=== PATIENT | male | born 1955 | race African-American/Black ===

== ENCOUNTER 2017-08-15 13:05 | Emergency (ER) | payer MEDICARE, OTHER ==
[2017-08-15 13:53] LABS: #Eosinphils 0.2 thou/uL (0.0-0.7); #Lymphocytes 1.9 thou/uL (1.20-3.40); #Monocytes 0.6 thou/uL (0.11-0.59); #Neutrophils 3.6 thou/uL (1.40-6.50); %Basophils 0.6 % (0.0-1.0); %Eosinophils 3.9 % (0.0-10.0); %Lymphocytes 30.1 % (21.0-51.0); %Monocytes 9.5 % (0.0-10.0); Hemoglobin 13.5 g/dL (14.0-18.0); Mean Corpuscular HGB CONC 31.5 g/dL (32.0-36.0); Mean Corpuscular Hemoglobin 29.3 pg (27.0-31.0); Mean Platelet Volume 8.1 fL (7.4-10.4); Platelet Count 174 thou/uL (130-400); Red Blood Cell (RBC) Count 4.61 mill/uL (4.70-6.10); White Blood Cell (WBC) Count 6.4 thou/uL (4.8-10.8)
--- NOTE | 2017-08-15 13:59 | RAD ---
SINGLE VIEW CHEST: Date: 08/15/17 COMPARISON: None. HISTORY: Left-sided chest pain. FINDINGS: Single view of the chest shows a normal sized cardiomediastinal silhouette. There is no evidence of c onsolidation, mass, or pleural effusion. Degenerative changes are seen in the spine and shoulders. IMPRESSION: No evidence of acute cardiopulmonary disease. POS: [facility]
[2017-08-15 14:19] LABS: ALT (SGPT) 26 U/L (8-55); AST (SGOT) 37 U/L (5-34); Albumin 3.9 g/dL (3.4-4.8); Alkaline Phosphatase 91 U/L (40-150); Anion Gap 12 mmol/L (10-20); BUN (Urea Nitrogen) 13 mg/dL (8.4-25.7); Bilirubin, Total 0.6 mg/dL (0.2-1.2); CK (CPK) 478 U/L (30-200); Calc. Creatinine Clearance 0 mL/min (70-130); Calcium 9.1 mg/dL (7.8-10.44); Carbon Dioxide 23 mmol/L (23-31); Chloride 103 mmol/L (98-107); Estimated GFR-MDRD 84; Glucose 73 mg/dL (80-115); Protein, Total 7.9 g/dL (5.8-8.1); Sodium 134 mmol/L (136-145)
[2017-08-15 14:20] LABS: CKMB 5.3 ng/mL (0-6.6); Troponin I 0.011 ng/mL (< 0.028)
[2017-08-15] MEDS ORDERED: Midazolam HCl 2 mg/2 ml Vial ONE (14:37)
[2017-08-15] MEDS ORDERED: Ketorolac Tromethamine 30 MG/ML VIAL ONE (14:37)
--- NOTE | 2017-08-15 15:01 | CT ---
CT OF THE CERVICAL SPINE WITHOUT CONTRAST: Date: 08/15/17 HISTORY: Left-sided neck pain that started today. TECHNIQUE: Multiple contiguous axial images were obtained in a CT of the cervical spine without contrast. Sagitt al and coronal reformats were performed. FINDINGS: There are moderate degenerative changes throughout the cervical spine. The intervertebral discs are n arrowed and there are posterior disc osteophyte complexes throughout the cervical spine. These disc o steophyte complexes cause narrowing of the central canal and bilateral neural foramina. Evaluation is less definitive than MRI. There is no evidence of acute fracture or subluxation. No prevertebral sof t tissue swelling is seen. The posterior facets are well aligned. Normal alignment of the skull base with the cervical spine is seen. IMPRESSION: Degenerative changes of the cervical spine without acute osseous abnormality. POS: [facility]
[2017-08-15] MEDS ORDERED: Labetalol HCl 100 MG/20 ML VIAL ONE (16:13)
== END 2017-08-15 16:55 | disposition home or self-care (01) ==
LOC: ERS 13:05
DX: M43.6 Torticollis (principal); I10 Essential (primary) hypertension; I25.2 Old myocardial infarction; F17.290 Nicotine dependence, other tobacco product, uncomplicated; F17.210 Nicotine dependence, cigarettes, uncomplicated; Z79.82 Long term (current) use of aspirin
CPT/HCPCS: 36415; 71045; 72125; 80053; 82553; 84484; 85025; 93005; 96374; 96375; J1885; J2250

== ENCOUNTER 2017-10-18 08:43 | Inpatient (IN) | payer MEDICARE, OTHER ==
[2017-10-18 09:30] LABS: Hemoglobin 13.8 g/dL (14.0-18.0); Mean Corpuscular HGB CONC 32.9 g/dL (32.0-36.0); Mean Corpuscular Hemoglobin 29.8 pg (27.0-31.0); Mean Corpuscular Volume 90.7 fl (80.0-94.0); Mean Platelet Volume 8.2 fL (7.4-10.4); Platelet Count 120 thou/uL (130-400); RBC Distribution Width 12.8 % (11.5-14.5); Red Blood Cell (RBC) Count 4.61 mill/uL (4.70-6.10)
[2017-10-18 09:50] LABS: ALT (SGPT) 25 U/L (8-55); AST (SGOT) 41 U/L (5-34); Albumin 3.8 g/dL (3.4-4.8); Alkaline Phosphatase 89 U/L (40-150); Anion Gap 10 mmol/L (10-20); BUN (Urea Nitrogen) 11 mg/dL (8.4-25.7); Bilirubin, Total 0.3 mg/dL (0.2-1.2); CK (CPK) 461 U/L (30-200); Calc. Creatinine Clearance 0 mL/min (70-130); Calcium 8.3 mg/dL (7.8-10.44); Carbon Dioxide 27 mmol/L (23-31); Chloride 102 mmol/L (98-107); Estimated GFR-MDRD 89; Globulin 3.8 g/dL (2.4-3.5); Glucose 111 mg/dL (80-115); Lipase 15 U/L (8-78); Protein, Total 7.6 g/dL (5.8-8.1); Sodium 135 mmol/L (136-145)
[2017-10-18 09:54] LABS: CKMB 2.9 ng/mL (0-6.6); Troponin I 0.014 ng/mL (< 0.028)
[2017-10-18] MEDS ORDERED: hydrALAZINE 20 MG/ML VIAL ONE (09:54)
[2017-10-18 10:04] LABS: Band 14 % (5-11); Eosinophils 2 % (0-10); Lymphocytes 30 % (21-51); MDiff Complete? YES; Monocytes 8 % (0-10); Neutrophil 37 % (42-75); PLT Morphology Comment Appears Decreased; RBC Morphology Normal; Reactive Lymphocytes 8 % (0-10)
--- NOTE | 2017-10-18 10:20 | CT ---
NONCONTRAST HEAD CT: HISTORY: Dizziness. COMPARISON: 11/21/13. TECHNIQUE: A noncontrast head CT is performed from the skull base to the skull vertex. FINDINGS: No parenchymal hemorrhage. No extraaxial hematoma. No midline shift. Basilar cisterns are patent. Age-appropriate brain volume. Cortical polk-white matter differentiation is preserved. The ventricles and sulci are patent and symmetric. Chronic small-vessel ischemic changes of the white matter are identified. Calvarium is intact. Adequate aeration of the mastoid air cells. Partial opacification of the visua lized ethmoid air cells. IMPRESSION: 1. No acute intracranial process. 2. Chronic small-vessel ischemic changes of the white matter are present. POS: [facility]
[2017-10-18] MEDS ORDERED: niCARdipine 20MG In NaCl 20 MG/200 ML BAG ONE (10:30)
--- NOTE | 2017-10-18 10:49 | CT ---
CTA CHEST WITH 3D VOLUME RENDERING CTA ABDOMEN AND PELVIS WITH 3D VOLUME RENDERING CTA AORTOGRAM WITH 3D VOLUME RENDERING: CLINICAL HISTORY: New-onset chest pain with abdominal pulsatility and dizziness. FINDINGS: There is no evidence of an acute aortic dissection. No aneurysmal dilatation of the thoracoabdominal aorta. There is multifocal mild atherosclerotic irregularity. No acute abnormality of the pulmonar y parenchyma or solid abdominal organs, although evaluation is not tailored for their evaluation on t he basis on this aortogram. Scattered osseous degenerative change is present. There is a fat-contai rolando hernia of the superior, right aspect of the paraumbilical region. IMPRESSION: No acute aortic dissection or aneurysm. No periaortic hematoma. Diffuse, mild atherosclerotic disea se is present. POS: [facility]
--- NOTE | 2017-10-18 10:58 | RAD ---
FRONTAL VIEW CHEST SERIES; COMPARISON: 08/15/17. INDICATION: Chest pain. FINDINGS: The lungs are hyperinflated. Cardiac silhouette is stable. No new consolidation or effusion. No di screte pneumothorax. IMPRESSION: 1. Hyperinflated lungs indicating chronic obstructive pulmonary disease. 2. No lobar consolidation. POS: [facility]
[2017-10-18] MEDS ORDERED: Morphine 4 MG/ML VIAL ONE (11:25)
[2017-10-18] MEDS ORDERED: Morphine 4 MG/ML VIAL IV PRN (12:13)
[2017-10-18] MEDS ORDERED: Ondansetron HCl/PF 4 MG/2 ML Vial IVP PRN ×2 (12:42→13:02)
[2017-10-18] MEDS ORDERED: Acetaminophen 650 MG Suppository PR PRN (12:42)
[2017-10-18] MEDS ORDERED: Bisacodyl 5 MG TAB PO PRN (12:42)
[2017-10-18] MEDS ORDERED: Ondansetron ODT 4 MG TAB PO PRN (13:03)
[2017-10-18 13:08] LABS: #Lymphocytes 0.5 thou/uL (1.20-3.40); #Monocytes 0.3 thou/uL (0.11-0.59); #Neutrophils 1.3 thou/uL (1.40-6.50); %Basophils 1.2 % (0.0-1.0); %Eosinophils 0.2 % (0.0-10.0); %Lymphocytes 24.7 % (21.0-51.0); %Monocytes 14.7 % (0.0-10.0); %Neutrophils 59.1 % (42.0-75.0); Hemoglobin 13.3 g/dL (14.0-18.0); Mean Corpuscular HGB CONC 33.4 g/dL (32.0-36.0); Mean Corpuscular Volume 89.8 fl (80.0-94.0); Mean Platelet Volume 8.6 fL (7.4-10.4); Platelet Count 106 thou/uL (130-400); RBC Distribution Width 12.7 % (11.5-14.5); Red Blood Cell (RBC) Count 4.44 mill/uL (4.70-6.10); White Blood Cell (WBC) Count 2.1 thou/uL (4.8-10.8)
[2017-10-18] MEDS ORDERED: Aspirin 325 MG TAB PO SCH (13:15)
[2017-10-18 13:21] VITALS: BMI 20.9
[2017-10-18 13:23] LABS: Troponin I Less than 0.010 ng/mL (< 0.028)
[2017-10-18] MEDS ORDERED: Lidocaine 2% Viscous Solution 10 ML, Aluminum & Magnesium Hydroxide 30 ML SSW SCH (13:30)
[2017-10-18] MEDS ORDERED: ISOVUE-370 76%-LOCM 1 ML ONE (13:56)
--- NOTE | 2017-10-18 13:57 | HP ---
PRIMARY CARE PROVIDER: None. CHIEF COMPLAINT: Abdominal pain. HISTORY OF PRESENT ILLNESS: Mr. Meléndez is a pleasant 62-year-old gentleman who was seen at [facility] on 10/18/2017. He was hospitalized at this facility in 02/2016 for chest pain. He reports that he does not follow up with primary care provider. He was reportedly doing well until 2 days ago. At that time, he started having cough. Last night, he developed pain over his upper abdomen. He describes it as sharp, across his upper abdomen, 10/10 at its worst, radiating to the left side of his chest as well as to the back. No known aggravating or relieving factors , accompanied by nausea and vomiting, not accompanied by diarrhea. He reports that he felt warm, but he did not check his temperature. He came to the emergency room because of ongoing abdominal pain. REVIEW OF SYSTEMS: All other systems reviewed and found to be negative. PAST MEDICAL HISTORY: Hypertension and myocardial infarction x2. PAST SURGICAL HISTORY: Back surgery and right knee surgery. SOCIAL HISTORY: Smokes 2-3 cigars a day. He denies alcohol use or recreational drug use. ALLERGIES: No known drug allergies. CURRENT MEDICATION: Aspirin 81 mg daily. FAMILY HISTORY: No family history of premature coronary artery disease. PHYSICAL EXAMINATION: GENERAL: On examination, Mr. Meléndez is awake and alert, in mild distress. VITAL SIGNS: Blood pressure is 223/128, pulse is 67, his breathing at rate of 20 and saturating 97% on room air. He is afebrile. EYES: No scleral icterus. No conjunctival pallor. ENT: Dry mucosal membranes, no oropharyngeal erythema or exudates. NECK: Supple, nontender, normal range of movement. Trachea is midline. RESPIRATORY: Accessory muscles of breathing are not active. Chest wall movements are symmetric bilaterally. LUNGS: Clear to auscultation without wheeze, rhonchi or crepitations. CARDIOVASCULAR: S1 and S2 are heard, regular. Peripheral pulses palpable. No carotid bruit, no pericardial rub. ABDOMEN: Scaphoid, mild epigastric tenderness, no guarding or rigidity, bowel sounds heard, no hepatomegaly, no splenomegaly. NEUROLOGIC: Cranial nerves II-XII intact. Deep tendon reflexes are 2+. MUSCULOSKELETAL: Power is 5/5 in all 4 extremities. SKIN: No rashes or subcutaneous nodules. LYMPHATIC: No cervical lymphadenopathy. PSYCHIATRIC: Appears anxious, oriented to person and place, not to time. IMAGING DATA AND LABORATORY DATA: Mr. Meléndez's labs and investigations were reviewed. I reviewed his electrocardiogram, which shows normal sinus rhythm, no ST changes to suggest an acute coronary syndrome. I also reviewed his chest x-ray, which does not show any pulmonary infiltrates. He does have hyperinflated lungs. He also had CT dissection protocol, which did not reveal any acute aortic dissection or aneurysm. That is no periaortic hematoma. He has diffuse mild atherosclerotic disease. Laboratory investigation show leukopenia with 3,000 white cells, of which 37% are neutrophils. He also has bandemia, with 14% bands. He has normocytic anemia with hemoglobin 13.8 and thrombocytopenia with platelet count 120,000. Sodium is decreased at 135. The rest of the electrolytes are normal. Creatinine is normal. AST is elevated at 41, but the remainder of liver profile is unremarkable. Lipase is normal. Troponin I is normal. BNP is normal. CK is elevated at 461. ASSESSMENT AND PLAN: Mr. Meléndez is a pleasant 62-year-old gentleman who was seen at [facility] on 10/18/2017. His problem list includes: 1. Abdominal pain: Etiology is unclear. 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 For now, we will treat the patient with analgesics as well as GI cocktail and observe. 2. Hypertensive urgency: Patient's blood pressure was consistently elevated in the emergency room. He is now on nicardipine drip. He will be admitted to the CCU for further management. 3. Leukopenia: Patient's presentation actually meets the criteria for sepsis. I will request blood cultures as well as urine studies. If there is any evidence of infection, we will start the patient on antibiotics. We will recheck his CBC to ensure bandemia and leukopenia earlier. 4. Tobacco abuse: Patient has been counseled regarding tobacco cessation. Start patient on nicotine replacement therapy. 5. Medication noncompliance: Patient has been counseled regarding medication compliance. 6. Abnormal liver function tests: Mildly elevated AST could be secondary to rhabdomyolysis. 7. Rhabdomyolysis: Mild. Provide intravenous hydration. 8. Hyponatremia: Mild, rechecked. 9. Thrombocytopenia: I note that patient had a normal platelet count in 2017. We will recheck platelet count. We will not start patient on heparin for deep venous thrombosis prophylaxis, we will use SCDs. Many thanks for allowing me to participate in Mr. Meléndez's care. Please feel free to contact me with any questions or concerns. LEVEL OF RISK: High. LEVEL OF COMPLEXITY: High. MTDD
[2017-10-18] MEDS: niCARdipine HCl 25 MG in Sodium Chloride 0.9% 250 ML 240 ML IVPB SCH ×3 (15:00→23:09)
[2017-10-18] MEDS: Sodium Chloride 0.9% 1,000 ML IV SCH (15:03)
[2017-10-18 15:43] LABS: Amphetamine Not Detected (NotDetected); Barbiturates Screen Not Detected (NotDetected); Benzodiazepine Screen Detected (NotDetected); Cocaine Metabolite Screen Not Detected (NotDetected); Medtox Control Line Valid? VALID (VALID); Medtox Reader # READER 1; Methadone Not Detected (NotDetected); Methamphetamine Not Detected (NotDetected); Opiate Screen Detected (NotDetected); Oxycodone Screen Not Detected (NotDetected); Phencyclidine (PCP) Not Detected (NotDetected); THC/Cannabinoid Screen Detected (NotDetected); Tricyclic Screen Not Detected (NotDetected)
[2017-10-18] MEDS: Nicotine 14 MG PATCH TD SCH (15:52)
[2017-10-18] MEDS ORDERED: Lidocaine 2% Viscous Solution 10 ML, Aluminum & Magnesium Hydroxide 30 ML SSW PRN (23:00)
--- NOTE | 2017-10-19 01:30 | CON ---
DATE OF CONSULTATION: 10/18/2017 HISTORY OF PRESENT ILLNESS: Stuart Meléndez is a 62-year-old gentleman, noncompliant with his blood pr essure medication, presented with chest pain, shortness of breath, epigastric pain. Apparently, he r an out of his medication. Moved from [place] near [place] to [facility], does not have a pr [facility] care physician, but apparently had some kind of blood pressure medicine that he had a reaction to. In the ER, he was found to have nonspecific EKG changes, markedly elevated blood pressure. ER note s [place] his blood pressure on arrival was 198/136, temperature 98, respiration 21, saturation 97% on ro om air. He is started on a Cardene drip. Denies any headache, nausea or vomiting. PAST MEDICAL HISTORY: Hypertension and arthritis. PAST SURGICAL HISTORY: Otherwise included a knee operation, back surgeries many years ago. SOCIAL HISTORY: Alcohol, none. Tobacco, two cigars a day. He is unemployed, disabled. ALLERGIES: None. Only medicine he is taking is aspirin. REVIEW OF SYSTEMS: Otherwise, 10-point negative. PHYSICAL EXAMINATION: GENERAL: Appears to be in no acute distress, on Cardene drip. VITAL SIGNS: His blood pressure is 160/80, sats are 97 on room air, respiration rate 18, pulse 80. CHEST: With no wheezing or crackles. CARDIAC: Normal S1, S2, no gallops. ABDOMEN: Soft. EXTREMITIES: No edema. NEUROLOGIC: Awake, alert, responsive. Moves all of his extremities. LABORATORY AND X-RAY FINDINGS: White count 2000, H and H 13 and 39, platelet count is low 106. Appe ars to be something new. His electrolytes are normal. Renal function is normal. AST slightly eleva pippa at 41. He has benzos and opiates in his toxicology screen. CT brain, CT chest, chest x-rays were all unremarkable. IMPRESSION: 1. Hypertensive urgency, well controlled with Cardene. 2. Noncompliance with medication. 3. Arthritis. 4. Tobacco abuse. 5. Thrombocytopenia, new, unknown etiology. 6. Leukopenia. Consider ordering a HIV and a hepatitis profile for his thrombocytopenia. I agree with present blood pressure medication control. I will start him on p.o. medication at this time. We will follow while in the ICU.
[2017-10-19] MEDS: niCARdipine HCl 50 MG in Sodium Chloride 0.9% 250 ML 240 ML IVPB SCH ×2 (01:51→08:14)
[2017-10-19] MEDS: Sodium Chloride 0.9% 1,000 ML IV SCH ×2 (02:50→20:14)
[2017-10-19 05:45] LABS: Band 2 % (5-11); Hemoglobin 13.3 g/dL (14.0-18.0); Lymphocytes 35 % (21-51); MDiff Complete? YES; Mean Corpuscular Hemoglobin 29.7 pg (27.0-31.0); Mean Corpuscular Volume 87.5 fl (80.0-94.0); Mean Platelet Volume 8.3 fL (7.4-10.4); Monocytes 11 % (0-10); Neutrophil 52 % (42-75); PLT Morphology Comment Appears Decreased; Platelet Count 99 thou/uL (130-400); RBC Distribution Width 12.6 % (11.5-14.5); Red Blood Cell (RBC) Count 4.49 mill/uL (4.70-6.10); White Blood Cell (WBC) Count 2.9 thou/uL (4.8-10.8)
[2017-10-19 06:02] LABS: Anion Gap 8 mmol/L (10-20); BUN (Urea Nitrogen) 9 mg/dL (8.4-25.7); Calc. Creatinine Clearance 99 mL/min (70-130); Calcium 8.2 mg/dL (7.8-10.44); Carbon Dioxide 25 mmol/L (23-31); Chloride 101 mmol/L (98-107); Estimated GFR-MDRD Greater than 90; Glucose 107 mg/dL (80-115); Potassium 3.2 mmol/L (3.5-5.1); Sodium 131 mmol/L (136-145)
[2017-10-19] MEDS: Acetaminophen 325 MG TAB PO PRN (08:23)
[2017-10-19] MEDS ORDERED: Losartan 25 MG TAB PO SCH (09:00)
--- NOTE | 2017-10-19 12:03 | PRG ---
DATE OF SERVICE: 10/19/2017 SUBJECTIVE: Stuart Meléndez this morning is awake, alert, and responsive. No headache. No shortness of breath. PHYSICAL EXAMINATION: VITAL SIGNS: Blood pressure 155/89, pulse 109, respiration rate 18. CHEST: Decreased breath sounds, no wheezing. CARDIAC: Normal S1, S2. No gallops. ABDOMEN: Soft, no masses. LABORATORY DATA: White count 2.9, hemoglobin and hematocrit 13 and 39, platelet count is low. Sodium 132, creatinine 3.2. IMPRESSION: 1. Uncontrolled hypertension. 2. Thrombocytopenia. PLAN: Increase Cozaar. Apparently, his first dose of Cozaar was not given until this morning. Hopefully, once his blood pressure is controlled of the Cardene, he can be transferred out of the ICU .
[2017-10-19] MEDS: Nicotine 14 MG PATCH TD SCH (13:15)
--- NOTE | 2017-10-19 15:12 | PDOC.PN ---
- Subjective Encounter Start Date: 10/19/17 Encounter Start Time: 10:20 Pt seen for followup re: hypertensive urgency. Denies chest pain, denies abdominal pain. No nausea or vomiting. - Objective MAR Reviewed: Yes Vital Signs & Weight: Vital Signs (12 hours) Temp Pulse Resp Pulse Ox 10/19/17 12:00 98.1 F 10/19/17 08:00 98 F 85 18 96 Weight Admit Weight 171 lb 15.369 oz Weight 171 lb 15.369 oz Most Recent Monitor Data Heart Rate from ECG 79 NIBP 153/97 NIBP BP-Mean 109 Respiration from ECG 15 SpO2 94 I&O: 10/18/17 10/19/17 10/20/17 06:59 06:59 06:59 Intake Total 2130 586 Output Total 2170 1010 Balance -40 -424 Result Diagrams: 10/19/17 04:40 10/19/17 04:40 EKG Reviewed by me: Yes (Tele: NSR) Phys Exam - Physical Examination Constitutional: NAD HEENT: moist MMs, sclera anicteric, oral pharynx no lesions, 2+ tonsils Neck: no nodes, no JVD, supple, full ROM Respiratory: no wheezing, no rales, no rhonchi, clear to auscultation bilateral Cardiovascular: RRR, no rub S1, S2 Gastrointestinal: soft, non-tender, no distention, positive bowel sounds Neurological: moves all 4 limbs Psychiatric: normal affect Deviation from normal: Oriented to person and place, not to time Dx/Plan (1) Hypertensive urgency Code(s): I16.0 - HYPERTENSIVE URGENCY Status: Acute Comment: Pt started on losartan, will try to weasn pt off nicardipene drip. Monitor vital signs and titrate antihypertensives as needed. (2) Hypokalemia Code(s): E87.6 - HYPOKALEMIA Status: Acute Comment: replace and check potassium level (3) Hyponatremia Code(s): E87.1 - HYPO-OSMOLALITY AND HYPONATREMIA Status: Acute Comment: Likely asymptomatic (4) Polysubstance abuse Code(s): F19.10 - OTHER PSYCHOACTIVE SUBSTANCE ABUSE, UNCOMPLICATED Status: Chronic Comment: counseled re: cessation. (5) Thrombocytopenia Code(s): D69.6 - THROMBOCYTOPENIA, UNSPECIFIED Status: Chronic Comment: Will check HIV and hepatitis panel (6) Abdominal pain Code(s): R10.9 - UNSPECIFIED ABDOMINAL PAIN Status: Resolved - Plan * . Review of Systems - Review of Systems Constitutional: negative: fever, chills, sweats, weakness, malaise Respiratory: negative: Cough, Shortness of Breath, SOB with Excertion, Pleuritic Pain, Wheezing Cardiovascular: negative: chest pain, palpitations, orthopnea, paroxysmal nocturnal dyspnea, edema, light headedness Gastrointestinal: negative: Nausea, Vomiting, Abdominal Pain, Diarrhea, Constipation, Melena, Hematochezia Genitourinary: negative: Dysuria, Frequency, Incontinence, Hematuria, Retention - Medications/Allergies Allergies/Adverse Reactions: Allergies Allergy/AdvReac Type Severity Reaction Status Date / Time No Known Drug Allergies Allergy Verified 11/20/13 10:15 Medications: Current Medications Acetaminophen (Tylenol) 650 mg PO Q4H PRN PRN Reason: Headache/Fever or Pain Last Admin: 10/19/17 08:23 Dose: 650 mg Acetaminophen (Tylenol) 650 mg ME Q4H PRN PRN Reason: Headache/Fever or Pain Bisacodyl (Dulcolax) 10 mg PO DAILYPRN PRN PRN Reason: Constipation Lidocaine HCl 10 ml/ Al (Hydroxide/Mg Hydroxide 30 ml) 0 ml SSW Q8H PRN PRN Reason: heartburn Sodium Chloride (Normal Saline 0.9%) 1,000 mls @ 70 mls/hr IV .[id number] [facility]DRO Last Admin: 10/19/17 02:50 Dose: 1,000 mls Nicardipine HCl 50 mg/ Sodium (Chloride) 260 mls @ 0 mls/hr IVPB INF [facility]O; Titrate PRN Reason: Protocol Last Admin: 10/19/17 08:14 Dose: 260 mls Losartan Potassium (Cozaar) 50 mg PO BID [facility] Nicotine (Nicoderm Patch) 14 mg TD Q24HR [facility] Last Admin: 10/19/17 13:15 Dose: 14 mg Ondansetron HCl (Zofran) 4 mg IVP Q6H PRN PRN Reason: Nausea/Vomiting Last Admin: 10/18/17 18:54 Dose: 4 mg Sodium Chloride (Flush - Normal Saline) 10 ml IVF Q12HR [facility] Last Admin: 10/19/17 08:22 Dose: 10 ml Sodium Chloride (Flush - Normal Saline) 10 ml IVF PRN PRN PRN Reason: Saline Flush
[2017-10-19] MEDS ORDERED: Potassium Chloride 20 MEQ TAB PO SCH (15:15)
[2017-10-19] MEDS ORDERED: Amlodipine 5 MG TAB PO SCH (17:00)
[2017-10-19 17:39] LABS: HBSAg Index 0.21 S/CO (0-0.99); Hep B Surf Ag Non-Reactive S/CO (NonReactive)
[2017-10-19 17:41] LABS: Hep A IgM AB Non-Reactive (NonReactive)
[2017-10-19 17:42] LABS: HBCM Index 0.08 S/CO (0-0.79); Hep A IgM S/CO 0.23 S/CO (0-0.79); Hepatitis B Core IGM Abs Non-Reactive (NonReactive)
[2017-10-19 17:44] LABS: HIV (1/2) Antibody/Antigen Non-Reactive (NonReactive); HIV 1/2 INDEX 0.07 S/CO (<1.00)
[2017-10-19 18:44] LABS: Hep C IgG Ab REACTIVE (NonReactive); Hep C Index 12.11 S/CO (0-0.79)
[2017-10-19] MEDS: Losartan 25 MG TAB PO SCH (20:13)
[2017-10-19] MEDS: cloNIDine 0.1 MG TAB PO PRN (20:14)
[2017-10-19] MEDS: hydrALAZINE 20 MG/ML VIAL SLOW IVP PRN (23:04)
[2017-10-20] MEDS: Acetaminophen 325 MG TAB PO PRN (01:05)
[2017-10-20] MEDS ORDERED: niCARdipine HCl 50 MG in Sodium Chloride 0.9% 250 ML 230 ML IVPB SCH (04:00)
[2017-10-20 05:24] LABS: Anion Gap 10 mmol/L (10-20); BUN (Urea Nitrogen) 9 mg/dL (8.4-25.7); Calc. Creatinine Clearance 104 mL/min (70-130); Calcium 8.3 mg/dL (7.8-10.44); Carbon Dioxide 23 mmol/L (23-31); Chloride 102 mmol/L (98-107); Estimated GFR-MDRD Greater than 90; Glucose 107 mg/dL (80-115); Potassium 3.4 mmol/L (3.5-5.1); Sodium 132 mmol/L (136-145)
[2017-10-20 05:52] LABS: Band 6 % (5-11); Hemoglobin 13.5 g/dL (14.0-18.0); Lymphocytes 48 % (21-51); MDiff Complete? YES; Mean Corpuscular HGB CONC 34.1 g/dL (32.0-36.0); Mean Corpuscular Hemoglobin 29.8 pg (27.0-31.0); Mean Corpuscular Volume 87.3 fl (80.0-94.0); Mean Platelet Volume 8.3 fL (7.4-10.4); Monocytes 14 % (0-10); Neutrophil 29 % (42-75); PLT Morphology Comment Appears Decreased; Platelet Count 94 thou/uL (130-400); RBC Distribution Width 12.5 % (11.5-14.5); Reactive Lymphocytes 3 % (0-10); Red Blood Cell (RBC) Count 4.55 mill/uL (4.70-6.10); White Blood Cell (WBC) Count 3.1 thou/uL (4.8-10.8)
--- NOTE | 2017-10-20 08:52 | PRG ---
DATE OF SERVICE: 10/20/2017 This morning he is awake, alert, responsive. He is still thrombocytopenic. His hepatitis C antibody was reactive. PHYSICAL EXAMINATION: VITAL SIGNS: Blood pressure 139/98, sats 98, respiration rate 18. He is on Cardene CR 5 mg an hour. CHEST: Chest revealed decreased breath sounds, no wheezing. CARDIAC: Normal S1, S2. ABDOMEN: Soft, no masses. His blood pressure medicine has been adjusted. I put him on hydralazine 25 three times a day, Coreg home medicine 6.25 twice a day. IMPRESSION: 1. Hypertensive. 2. Thrombocytopenia, probably secondary to hepatitis C. PLAN: Once the Cardene is off, he can be transferred out of the ICU.
[2017-10-20] MEDS ORDERED: Amlodipine 5 MG TAB PO SCH (09:00)
[2017-10-20] MEDS ORDERED: hydrALAZINE 25 MG TAB PO SCH ×2 (09:00→15:00)
[2017-10-20] MEDS: Losartan 25 MG TAB PO SCH ×2 (09:50→22:45)
[2017-10-20] MEDS ORDERED: Carvedilol 6.25 MG TAB PO SCH ×2 (09:50→21:00)
[2017-10-20] MEDS: hydrALAZINE 25 MG TAB PO SCH ×3 (09:51→22:46)
[2017-10-20] MEDS: Carvedilol 6.25 MG TAB PO SCH ×3 (09:57→17:34)
[2017-10-20] MEDS: Sodium Chloride 0.9% 1,000 ML IV SCH (09:59)
[2017-10-20] MEDS ORDERED: Potassium Chloride 20 MEQ TAB PO SCH (12:15)
--- NOTE | 2017-10-20 15:59 | PDOC.PN ---
- Subjective Encounter Start Date: 10/20/17 Encounter Start Time: 09:00 Pt seen for followup re: hypertensive urgency. Denies chest pain, shortness of breath, fevers or chills. - Objective MAR Reviewed: Yes Vital Signs & Weight: Vital Signs (12 hours) Temp Pulse Resp BP Pulse Ox 10/20/17 15:06 137/64 10/20/17 12:00 98.2 F 10/20/17 10:01 137/64 10/20/17 10:00 137/64 10/20/17 09:51 80 171/88 H 10/20/17 08:00 97.8 F 80 16 97 Weight Admit Weight 171 lb 15.369 oz Weight 171 lb 15.369 oz Most Recent Monitor Data Heart Rate from ECG 73 NIBP 179/108 NIBP BP-Mean 142 Respiration from ECG 18 SpO2 96 I&O: 10/19/17 10/20/17 10/21/17 06:59 06:59 06:59 Intake Total 2130 3468 924 Output Total 2170 3650 880 Balance -40 -182 44 Result Diagrams: 10/20/17 04:21 10/20/17 04:20 EKG Reviewed by me: Yes (Tele: NSR) Phys Exam - Physical Examination Constitutional: NAD HEENT: moist MMs, sclera anicteric, oral pharynx no lesions, 2+ tonsils Neck: no nodes, no JVD, supple, full ROM Respiratory: no wheezing, no rales, no rhonchi, clear to auscultation bilateral Cardiovascular: RRR, no rub S1, S2 Gastrointestinal: soft, non-tender, no distention, positive bowel sounds Neurological: moves all 4 limbs Psychiatric: normal affect Dx/Plan (1) Hypertensive urgency Code(s): I16.0 - HYPERTENSIVE URGENCY Status: Acute Comment: Unable to wean off of Cardene drip last night. Started on Coreg and lisinopril. (2) Hypokalemia Code(s): E87.6 - HYPOKALEMIA Status: Acute Comment: replace potassium, check potassium level (3) Hyponatremia Code(s): E87.1 - HYPO-OSMOLALITY AND HYPONATREMIA Status: Acute Comment: asymptomatic (4) Polysubstance abuse Code(s): F19.10 - OTHER PSYCHOACTIVE SUBSTANCE ABUSE, UNCOMPLICATED Status: Chronic Comment: counseled re: cessation. (5) Thrombocytopenia Code(s): D69.6 - THROMBOCYTOPENIA, UNSPECIFIED Status: Chronic Comment: HIV and hepatitis panel non-reactive (6) Abdominal pain Code(s): R10.9 - UNSPECIFIED ABDOMINAL PAIN Status: Resolved - Plan * . Review of Systems - Review of Systems Constitutional: negative: fever, chills, sweats, weakness, malaise Cardiovascular: negative: chest pain, palpitations, orthopnea, paroxysmal nocturnal dyspnea, edema, light headedness Gastrointestinal: negative: Nausea, Vomiting, Abdominal Pain, Diarrhea, Constipation, Melena, Hematochezia Skin: negative: Rash, Lesions, Patrick, Bruising Neurological: negative: Weakness, Numbness, Incoordination, Change in Speech, Confusion, Seizures - Medications/Allergies Allergies/Adverse Reactions: Allergies Allergy/AdvReac Type Severity Reaction Status Date / Time No Known Drug Allergies Allergy Verified 11/20/13 10:15 Medications: Current Medications Acetaminophen (Tylenol) 650 mg PO Q4H PRN PRN Reason: Headache/Fever or Pain Last Admin: 10/20/17 01:05 Dose: 650 mg Acetaminophen (Tylenol) 650 mg ME Q4H PRN PRN Reason: Headache/Fever or Pain Bisacodyl (Dulcolax) 10 mg PO DAILYPRN PRN PRN Reason: Constipation Carvedilol (Coreg) 6.25 mg PO BID-[facility] Last Admin: 10/20/17 10:00 Dose: 6.25 mg Clonidine (Catapres) 0.1 mg PO Q6H PRN PRN Reason: SBP Greater Than 170 Last Admin: 10/19/17 20:14 Dose: 0.1 mg Lidocaine HCl 10 ml/ Al (Hydroxide/Mg Hydroxide 30 ml) 0 ml SSW Q8H PRN PRN Reason: heartburn Hydralazine HCl (Apresoline) 10 mg SLOW IVP Q6H PRN PRN Reason: SBP Greater Than 170 Last Admin: 10/19/17 23:04 Dose: 10 mg Hydralazine HCl (Apresoline) 25 mg PO TID [facility] Last Admin: 10/20/17 15:06 Dose: 25 mg Nicardipine HCl 50 mg/ Sodium (Chloride) 250 mls @ 0 mls/hr IVPB INF [facility]; Titrate PRN Reason: Protocol Last Admin: 10/20/17 03:56 Dose: 250 mls Lisinopril (Zestril) 20 mg PO BID [facility] Losartan Potassium (Cozaar) 50 mg PO BID [facility] Last Admin: 10/20/17 09:50 Dose: 50 mg Ondansetron HCl (Zofran) 4 mg IVP Q6H PRN PRN Reason: Nausea/Vomiting Last Admin: 10/18/17 18:54 Dose: 4 mg Sodium Chloride (Flush - Normal Saline) 10 ml IVF Q12HR [facility] Last Admin: 10/20/17 09:51 Dose: 10 ml Sodium Chloride (Flush - Normal Saline) 10 ml IVF PRN PRN PRN Reason: Saline Flush
[2017-10-20] MEDS: cloNIDine 0.1 MG TAB PO PRN (17:33)
[2017-10-20] MEDS ORDERED: Lisinopril 20 MG TAB PO SCH (21:00)
[2017-10-20] MEDS: Lisinopril 20 MG TAB PO SCH (22:47)
[2017-10-21 05:35] LABS: Anion Gap 9 mmol/L (10-20); BUN (Urea Nitrogen) 10 mg/dL (8.4-25.7); Calc. Creatinine Clearance 99 mL/min (70-130); Calcium 8.5 mg/dL (7.8-10.44); Carbon Dioxide 24 mmol/L (23-31); Chloride 103 mmol/L (98-107); Estimated GFR-MDRD Greater than 90; Glucose 86 mg/dL (80-115); Potassium 3.9 mmol/L (3.5-5.1); Sodium 132 mmol/L (136-145)
[2017-10-21 06:09] LABS: Band 5 % (5-11); Eosinophils 3 % (0-10); Lymphocytes 49 % (21-51); MDiff Complete? YES; Mean Corpuscular HGB CONC 33.7 g/dL (32.0-36.0); Mean Corpuscular Hemoglobin 29.7 pg (27.0-31.0); Mean Corpuscular Volume 87.9 fl (80.0-94.0); Mean Platelet Volume 8.9 fL (7.4-10.4); Monocytes 11 % (0-10); Neutrophil 32 % (42-75); PLT Morphology Comment Appears Decreased; Platelet Count 96 thou/uL (130-400); RBC Distribution Width 12.5 % (11.5-14.5); White Blood Cell (WBC) Count 3.8 thou/uL (4.8-10.8)
--- NOTE | 2017-10-21 08:34 | PRG ---
DATE OF SERVICE: 10/21/2017 He is awake, alert, responsive. No pain, no discomfort. PHYSICAL EXAMINATION: VITAL SIGNS: Blood pressure 177/98, pulse 118, sats 98% on room air, respirations 18. CHEST: Chest revealed decreased breath sounds, no wheezing. CARDIAC: Normal S1-S2. No gallops. ABDOMEN: Soft, no masses. White count 3.8, platelet count 96. Electrolytes are normal. Sodium 132. IMPRESSION: Hypertensive urgency. Been on nicardipine for a period of time, much better. PLAN: He is on Zestril, Cozaar, Coreg and hydralazine for his blood pressure, pretty much what he wa s taking at home. He can be transferred out of the ICU. Continue blood pressure observation. PT and supportive care.
[2017-10-21] MEDS: Losartan 25 MG TAB PO SCH ×2 (08:43→21:37)
[2017-10-21] MEDS: Lisinopril 20 MG TAB PO SCH ×2 (08:43→21:36)
[2017-10-21] MEDS: hydrALAZINE 25 MG TAB PO SCH ×3 (08:44→21:37)
[2017-10-21] MEDS: Carvedilol 6.25 MG TAB PO SCH ×2 (08:58→16:39)
--- NOTE | 2017-10-21 13:15 | PDOC.PN ---
- Subjective Encounter Start Date: 10/21/17 Encounter Start Time: 11:00 Pt seen for followup re: hypertensive urgency. Denies chest pain. - Objective MAR Reviewed: Yes Vital Signs & Weight: Vital Signs (12 hours) Temp Pulse Resp BP Pulse Ox 10/21/17 12:00 98.3 F 10/21/17 08:58 160/102 H 10/21/17 08:44 81 160/102 H 10/21/17 08:43 160/102 H 10/21/17 08:00 98.5 F 80 15 92 L 10/21/17 04:00 98.3 F Weight Admit Weight 171 lb 15.369 oz Weight 171 lb 15.369 oz Most Recent Monitor Data Heart Rate from ECG 80 NIBP 183/107 NIBP BP-Mean 128 Respiration from ECG 15 SpO2 98 I&O: 10/20/17 10/21/17 10/22/17 06:59 06:59 06:59 Intake Total 3468 1754 720 Output Total 3650 2520 200 Balance -182 -766 520 Result Diagrams: 10/21/17 04:13 10/21/17 04:13 EKG Reviewed by me: Yes (Tele: NSR) Phys Exam - Physical Examination Constitutional: NAD HEENT: moist MMs, sclera anicteric, oral pharynx no lesions, 2+ tonsils Neck: no nodes, no JVD, supple, full ROM Respiratory: no wheezing, no rales, no rhonchi, clear to auscultation bilateral Cardiovascular: RRR, no rub Gastrointestinal: soft, non-tender, no distention, positive bowel sounds Musculoskeletal: pulses present Neurological: moves all 4 limbs Psychiatric: normal affect Deviation from normal: Oriented to person and place, but not to time Dx/Plan (1) Hypertensive urgency Code(s): I16.0 - HYPERTENSIVE URGENCY Status: Acute Comment: labile hypertension. Continue on current antihypertensives, monitor vital signs. (2) Hyponatremia Code(s): E87.1 - HYPO-OSMOLALITY AND HYPONATREMIA Status: Acute Comment: stable, asymptomatic (3) Polysubstance abuse Code(s): F19.10 - OTHER PSYCHOACTIVE SUBSTANCE ABUSE, UNCOMPLICATED Status: Chronic Comment: counseled re: cessation. (4) Thrombocytopenia Code(s): D69.6 - THROMBOCYTOPENIA, UNSPECIFIED Status: Chronic Comment: HIV and hepatitis panel non-reactive (5) Abdominal pain Code(s): R10.9 - UNSPECIFIED ABDOMINAL PAIN Status: Resolved (6) Hypokalemia Code(s): E87.6 - HYPOKALEMIA Status: Resolved - Plan * . Review of Systems - Review of Systems Constitutional: negative: fever, chills, sweats, weakness, malaise Respiratory: Cough, Dry, SOB with Excertion. negative: Shortness of Breath, Hemoptysis, Pleuritic Pain, Sputum, Wheezing Cardiovascular: negative: chest pain, palpitations, orthopnea, paroxysmal nocturnal dyspnea, edema, light headedness Gastrointestinal: negative: Nausea, Vomiting, Abdominal Pain, Diarrhea, Constipation, Melena, Hematochezia Genitourinary: negative: Dysuria, Frequency, Incontinence, Hematuria, Retention - Medications/Allergies Allergies/Adverse Reactions: Allergies Allergy/AdvReac Type Severity Reaction Status Date / Time No Known Drug Allergies Allergy Verified 11/20/13 10:15 Medications: Current Medications Acetaminophen (Tylenol) 650 mg PO Q4H PRN PRN Reason: Headache/Fever or Pain Last Admin: 10/20/17 01:05 Dose: 650 mg Acetaminophen (Tylenol) 650 mg VA Q4H PRN PRN Reason: Headache/Fever or Pain Bisacodyl (Dulcolax) 10 mg PO DAILYPRN PRN PRN Reason: Constipation Carvedilol (Coreg) 6.25 mg PO BID-[facility] Last Admin: 10/21/17 08:58 Dose: 6.25 mg Clonidine (Catapres) 0.1 mg PO Q6H PRN PRN Reason: SBP Greater Than 170 Last Admin: 10/20/17 17:33 Dose: 0.1 mg Lidocaine HCl 10 ml/ Al (Hydroxide/Mg Hydroxide 30 ml) 0 ml SSW Q8H PRN PRN Reason: heartburn Hydralazine HCl (Apresoline) 10 mg SLOW IVP Q6H PRN PRN Reason: SBP Greater Than 170 Last Admin: 10/19/17 23:04 Dose: 10 mg Hydralazine HCl (Apresoline) 25 mg PO TID [facility] Last Admin: 10/21/17 08:44 Dose: 25 mg Nicardipine HCl 50 mg/ Sodium (Chloride) 250 mls @ 0 mls/hr IVPB INF ALESSANDRO; Titrate PRN Reason: Protocol Last Admin: 10/20/17 03:56 Dose: 250 mls Lisinopril (Zestril) 20 mg PO BID [facility] Last Admin: 10/21/17 08:43 Dose: 20 mg Losartan Potassium (Cozaar) 50 mg PO BID [facility] Last Admin: 10/21/17 08:43 Dose: 50 mg Ondansetron HCl (Zofran) 4 mg IVP Q6H PRN PRN Reason: Nausea/Vomiting Last Admin: 10/18/17 18:54 Dose: 4 mg Sodium Chloride (Flush - Normal Saline) 10 ml IVF Q12HR [facility] Last Admin: 10/21/17 08:44 Dose: 10 ml Sodium Chloride (Flush - Normal Saline) 10 ml IVF PRN PRN PRN Reason: Saline Flush
--- NOTE | 2017-10-21 13:48 | RAD ---
PORTABLE CHEST: Date: 10-21-17 Provided Clinical History: Shortness of breath. FINDINGS: Comparison 10-18-17 Cardiac and mediastinal silhouette is within normal limits. Lungs appear clear. No pneumothorax is ap parent. IMPRESSION: No evidence for acute cardiopulmonary process. POS: [facility]
[2017-10-21] MEDS ORDERED: guaiFENesin ER 600 MG TAB PO PRN (15:10)
[2017-10-21] MEDS: cloNIDine 0.1 MG TAB PO PRN (16:38)
[2017-10-21] MEDS: hydrALAZINE 20 MG/ML VIAL SLOW IVP PRN (17:34)
[2017-10-22] MEDS: hydrALAZINE 20 MG/ML VIAL SLOW IVP PRN (02:41)
[2017-10-22] MEDS: Carvedilol 6.25 MG TAB PO SCH ×2 (08:23→16:16)
[2017-10-22] MEDS: Losartan 25 MG TAB PO SCH (08:24)
[2017-10-22] MEDS: hydrALAZINE 25 MG TAB PO SCH ×2 (08:24→14:34)
[2017-10-22] MEDS: Lisinopril 20 MG TAB PO SCH (08:24)
[2017-10-22] MEDS ORDERED: predniSONE 20 MG TAB PO SCH (09:00)
--- NOTE | 2017-10-22 09:05 | PRG ---
DATE OF SERVICE: 10/22/2017 SERVICE: Pulmonary Medicine. INTERVAL HISTORY: The patient is doing outstanding from a respiratory standpoint. He is breathing c omfortably. He has no complaints of fevers, chills, nausea, vomiting or chest discomfort. He is not having any shortness of breath. His blood pressure is under good control. He is not on any drips. PHYSICAL EXAMINATION: VITAL SIGNS: Afebrile, pulse 72, blood pressure 149/97, respirations 96% on room air. GENERAL: Patient is awake, alert, no apparent distress. LUNGS: Decreased air entry. There is slightly prolonged expiratory phase. Polyphonic wheezing and dependent crackles are both evident. No rhonchi. HEART: Normal rate and regular. ABDOMEN: Soft, nontender, nondistended. Bowel sounds are positive. MUSCULOSKELETAL: No cyanosis or clubbing. There is no pitting in the bilateral lower extremities. NEUROLOGIC: Grossly nonfocal. LABORATORY DATA: WBC 3.8, hemoglobin 13.0, and platelets 96,000. Basic metabolic profile is unremar kable. BNP 48. Urine drug screen is positive for opiates, benzos, and cannabinoids. HIV is nonreac tive. Hepatitis C antibody is positive. Blood cultures x2 and urine culture unremarkable. IMAGING: Chest x-ray demonstrates hyperexpanded lung raya, bilaterally. Small rim of atelectasis is present in the left base. No acute cardiopulmonary abnormality is otherwise identified. ASSESSMENT: 1. Hypertensive emergency. 2. Chronic obstructive pulmonary disease, suspected. 3. Polysubstance drug abuse. PLAN: The patient is stable for transition out of the ICU to the telemetry unit. When he leaves the ICU, he will have no further requirements for Pulmonary or Critical Care opinion, and we will sign o ff. Please call with additional questions or concerns moving forward.
[2017-10-22] MEDS: cloNIDine 0.1 MG TAB PO PRN (16:16)
[2017-10-22 17:26] VITALS: BP 159/100; TEMP 98.7
--- NOTE | 2017-10-22 23:41 | DIS ---
PRIMARY CARE PROVIDER: None. DATE OF ADMISSION: 10/18/2017 DATE OF DISCHARGE: 10/22/2017 DISCHARGE DIAGNOSIS: Hypertensive urgency. CONDITION OF PATIENT ON THE DAY OF DISCHARGE: Stable. I assessed Mr. Meléndez on the day of discharg e. He denies any chest pain or shortness of breath. Vital signs are stable, blood pressure has impr barney. S1 and S2 are heard, regular. Lungs are clear to auscultation bilaterally. DISCHARGE MEDICATIONS: Coreg 12.5 mg 2 times a day, hydralazine 50 mg 3 times a day, lisinopril 20 m g 2 times a day, lovastatin 20 mg daily, Medrol Dosepak. HOSPITAL COURSE: Mr. Meléndez is a pleasant 62-year-old gentleman, who was admitted to [facility] on 10/18/2017 for hypertensive urgency. He was admitted to the critical care uni and was treated with a Cardene drip. He gradually improved and was transitioned to oral antihypert ensives. He is advised to follow up with a primary care provider in 3-5 days. He has also been advised to sto p marijuana use. He also has pancytopenia, which will need further workup as outpatient. On 10/21/2017, he had white count 3800, hemoglobin 13, platelet count 96,000, sodium 132, normal pota ssium, and normal creatinine. At the time of admission, he also had abdominal pain, but that resolved. DISCHARGE DESTINATION: Home. TOTAL AMOUNT OF TIME SPENT COORDINATING THIS DISCHARGE: Thirty three minutes.
--- NOTE | 2017-10-23 00:04 | EKG ---
Test Reason : CHEST PAIN Blood Pressure : / mmHG Vent. Rate : 075 BPM Atrial Rate : 075 BPM P-R Int : 196 ms QRS Dur : 080 ms QT Int : 384 ms P-R-T Axes : 085 004 035 degrees QTc Int : 428 ms Normal sinus rhythm Possible Inferior infarct , age undetermined Cannot rule out Anterior infarct , age undetermined Abnormal ECG Confirmed by LASHELL GRANT ([id number]), script editor ALVA GUTHRIE ([id number]) on 10/23/2017 12:04:24 AM Referred By: ASHWIN GRANT Confirmed By:LASHELL GRANT
[2017-10-23] MEDS ORDERED: predniSONE 20 MG TAB PO SCH (08:00)
--- NOTE | 2017-10-24 20:46 | PQF ---
WALE JORGE DAVID [id number] CLINICAL DOCUMENTATION CLARIFICATION FORM: POST DISCHARGE Addendum to original discharge summary date: ____ Late entry note date: __ DATE: 10/24/17 ATTN: Please exercise your independent, professional judgment in responding to the clarification form. Clinical indicators are provided on the bottom of this form for your review Please check appropriate box(es): [ ] Sepsis due to: (Pna, UTI, gangrenous gall bladder, etc.) Due to: [ ] Device (please specify) [ ] Implant [ ] Graft [ ] Infusion [ ] SIRS due to non-infectious process (please specify etiology) [ ] with organ dysfunction [ ] without organ dysfunction [ ] Severe sepsis with acute organ dysfunction of: (Examples: respiratory failure, encephalopathy, acute kidney failure, other) [ ] Septic Shock [ ] Localized infection without sepsis [ X ] Other diagnosis ___Sepsis ruled out [ ] Unable to determine In addition, please specify: Present on Admission (POA): [ ] Yes [ ] No [ ] Unable to determine For continuity of documentation, please document condition throughout progress notes and discharge summary. Thank You. CLINICAL INDICATORS - SIGNS / SYMPTOMS / LABS WBC count (>12,000/mm^4 or <4000/mm^3 or 10% neuts, 10% bands) RISK FACTORS Advancing Age TREATMENTS: Initiation Sepsis Protocol MTDD
== END 2017-10-22 17:52 | disposition home or self-care (01) | DRG 305 ==
LOC: ERS 08:43 → CCU 10:59 → ERS 12:21 → CCU 10-21 20:51 → T4-A 10-22 10:05
PROVIDERS: ADMIT Internal Medicine; ATTEND Internal Medicine
DX: I16.0 Hypertensive urgency (principal); M62.82 Rhabdomyolysis; E87.1 Hypo-osmolality and hyponatremia; Z91.14 Patient's other noncompliance with medication regimen; I10 Essential (primary) hypertension; I25.2 Old myocardial infarction; F17.210 Nicotine dependence, cigarettes, uncomplicated; Z79.82 Long term (current) use of aspirin; D69.6 Thrombocytopenia, unspecified; J44.9 Chronic obstructive pulmonary disease, unspecified; F19.10 Other psychoactive substance abuse, uncomplicated
CPT/HCPCS: 36415; 70450; 71045; 71275; 80048; 80053; 80074; 80306; 82553; 83690; 83880; 84484; 85025; 87040; 87086; 87389; 93005; 94640; 96361; 96365; 96375; A4216; J0360; J2270; J2405; J7050; J7506; J7620; Q0162

== ENCOUNTER 2017-11-03 03:04 | Emergency (ER) | payer MEDICARE, OTHER ==
[2017-11-03] MEDS ORDERED: hydrALAZINE 20 MG/ML VIAL ONE (03:46)
[2017-11-03] MEDS ORDERED: diphenhydrAMINE 50 MG/ML VIAL ONE (04:04)
[2017-11-03] MEDS ORDERED: predniSONE 20 MG TAB ONE (04:04)
[2017-11-03] MEDS ORDERED: Famotidine 20 MG TAB ONE (04:04)
[2017-11-03] MEDS ORDERED: cloNIDine 0.1 MG TAB ONE (06:10)
== END 2017-11-03 09:15 | disposition home or self-care (01) ==
LOC: ERS 03:04
DX: R22.0 Localized swelling, mass and lump, head (principal); Z71.6 Tobacco abuse counseling; I10 Essential (primary) hypertension; I25.2 Old myocardial infarction; F17.210 Nicotine dependence, cigarettes, uncomplicated; Z79.899 Other long term (current) drug therapy; Z79.82 Long term (current) use of aspirin
CPT/HCPCS: 96374; 96375; 99406; J0360; J1200; J7506

== ENCOUNTER 2017-11-06 08:18 | Emergency (ER) | payer MEDICARE ==
[2017-11-06] MEDS ORDERED: HYDROcodone/Acetaminophen 5/325 mg Tablet ONE (08:43)
== END 2017-11-06 09:32 | disposition home or self-care (01) ==
LOC: ERS 08:18
DX: K04.7 Periapical abscess without sinus (principal); K02.9 Dental caries, unspecified; I25.2 Old myocardial infarction; I10 Essential (primary) hypertension; Z79.82 Long term (current) use of aspirin; Z79.899 Other long term (current) drug therapy; F17.220 Nicotine dependence, chewing tobacco, uncomplicated
CPT/HCPCS: 99282

== ENCOUNTER 2018-05-02 18:53 | Emergency (ER) | payer MEDICARE, OTHER ==
[2018-05-02 19:16] LABS: #Eosinphils 0.2 thou/uL (0.0-0.7); #Lymphocytes 2.1 thou/uL (1.20-3.40); #Monocytes 0.5 thou/uL (0.11-0.59); #Neutrophils 1.9 thou/uL (1.40-6.50); %Basophils 0.8 % (0.0-1.0); %Eosinophils 4.4 % (0.0-10.0); %Lymphocytes 45.6 % (21.0-51.0); %Monocytes 9.7 % (0.0-10.0); %Neutrophils 39.5 % (42.0-75.0); Hemoglobin 13.5 g/dL (14.0-18.0); Mean Corpuscular HGB CONC 32.6 g/dL (32.0-36.0); Mean Corpuscular Hemoglobin 29.6 pg (27.0-31.0); Mean Platelet Volume 8.3 fL (7.4-10.4); Platelet Count 160 thou/uL (130-400); RBC Distribution Width 13.1 % (11.5-14.5); Red Blood Cell (RBC) Count 4.54 mill/uL (4.70-6.10); White Blood Cell (WBC) Count 4.7 thou/uL (4.8-10.8)
[2018-05-02 19:42] LABS: ALT (SGPT) 24 U/L (8-55); AST (SGOT) 34 U/L (5-34); Alkaline Phosphatase 90 U/L (40-150); Anion Gap 11 mmol/L (10-20); BUN (Urea Nitrogen) 21 mg/dL (8.4-25.7); Bilirubin, Total 0.3 mg/dL (0.2-1.2); Calc. Creatinine Clearance 0 mL/min (70-130); Carbon Dioxide 27 mmol/L (23-31); Chloride 105 mmol/L (98-107); Estimated GFR-MDRD 68; Glucose 142 mg/dL (80-115); Lipase 16 U/L (8-78); Potassium 3.9 mmol/L (3.5-5.1); Sodium 139 mmol/L (136-145)
[2018-05-02] MEDS ORDERED: Ketorolac Tromethamine 30 MG/ML VIAL ONE (20:06)
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
--- NOTE | 2018-05-06 12:06 | EKG ---
Test Reason : HTN Blood Pressure : / mmHG Vent. Rate : 072 BPM Atrial Rate : 072 BPM P-R Int : 228 ms QRS Dur : 068 ms QT Int : 392 ms P-R-T Axes : 072 -05 -19 degrees QTc Int : 429 ms Sinus rhythm with 1st degree A-V block Septal infarct , age undetermined T wave abnormality, consider inferior ischemia Abnormal ECG Confirmed by RYAN CEJA DO ([id number]), editor greeting card LILY VASQUEZ ([id number]) on 05/06/2018 12:05:53 PM Referred By: BRENNA Confirmed By:RYAN CEJA DO
== END 2018-05-02 20:15 | disposition home or self-care (01) ==
LOC: ERS 18:53
DX: S09.90XA Unspecified injury of head, initial encounter (principal); M54.5 Low back pain; M54.2 Cervicalgia; M25.562 Pain in left knee; I25.2 Old myocardial infarction; I10 Essential (primary) hypertension; F17.220 Nicotine dependence, chewing tobacco, uncomplicated; Z79.82 Long term (current) use of aspirin; Z79.899 Other long term (current) drug therapy; V43.52XA Car driver injured in collision with other type car in traffic accident, initial encounter
CPT/HCPCS: 36415; 70450; 71045; 72125; 72131; 80053; 83690; 85025; 93005; 96374; G0390; J1885

== ENCOUNTER 2019-11-11 20:13 | Emergency (ER) | payer MEDICARE ==
[2019-11-11] MEDS ORDERED: Ondansetron ODT 4 MG TAB ONE (21:03)
[2019-11-11] MEDS ORDERED: HYDROcodone/Acetaminophen 10/325 mg Tablet ONE (21:50)
== END 2019-11-11 21:59 | disposition home or self-care (01) ==
LOC: ERS 20:13
DX: K02.9 Dental caries, unspecified (principal); I25.2 Old myocardial infarction; I10 Essential (primary) hypertension; Z79.899 Other long term (current) drug therapy; Z79.82 Long term (current) use of aspirin
CPT/HCPCS: 99283; Q0162

== ENCOUNTER 2021-07-20 07:08 | Emergency (ER) | payer MEDICARE ==
[2021-07-20] MEDS ORDERED: Ondansetron PF 4 MG/2 ML Vial ONE (08:15)
[2021-07-20] MEDS ORDERED: Morphine 4 MG/ML VIAL ONE (08:15)
[2021-07-20 08:42] LABS: Hemoglobin 12.6 g/dL (14.0-18.0); Mean Corpuscular HGB CONC 32.6 g/dL (32.0-36.0); Mean Corpuscular Hemoglobin 28.7 pg (27.0-31.0); Mean Corpuscular Volume 88.2 fL (78.0-98.0); Platelet Count 22 thou/uL (130-400); RBC Distribution Width 12.5 % (11.5-14.5); Red Blood Cell (RBC) Count 4.37 mill/uL (4.70-6.10); Reflex for Review?? YES; White Blood Cell (WBC) Count 3.7 thou/uL (4.8-10.8)
[2021-07-20 08:53] LABS: ALT (SGPT) 16 U/L (8-55); AST (SGOT) 32 U/L (5-34); Albumin 3.6 g/dL (3.4-4.8); Alkaline Phosphatase 63 U/L (40-110); Anion Gap 15 mmol/L (10-20); BUN (Urea Nitrogen) 24 mg/dL (8.4-25.7); Bilirubin, Total 0.8 mg/dL (0.2-1.2); Calc. Creatinine Clearance 0 mL/min (70-130); Carbon Dioxide 26 mmol/L (23-31); Chloride 95 mmol/L (98-107); Globulin 3.9 g/dL (2.4-3.5); Glucose 115 mg/dL (80-115); Lipase 7 U/L (8-78); Protein, Total 7.5 g/dL (5.8-8.1); Sodium 132 mmol/L (136-145)
[2021-07-20 09:09] LABS: Band 9 % (5-11); Lymphocytes 74 % (21-51); MDiff Complete? YES; Monocytes 4 % (0-10); Neutrophil 8 % (42-75); Platelet Morphology Comment Appears Decreased; Polychromasia SLIGHT = 2-3 cells (100X) (0-2/hpf); Reactive Lymphocytes 5 % (0-10)
[2021-07-20] MEDS ORDERED: Lidocaine Viscous Sol 2% 15 ml UD Cup ONE (10:23)
[2021-07-20] MEDS ORDERED: Mag-Al 1200 mg/1200 mg/30 ML UDCUP ONE (10:23)
[2021-07-20] MEDS ORDERED: Iopamidol-370 76% 500 ML 1 ML ONE (11:34)
== END 2021-07-20 11:00 | disposition home or self-care (01) ==
LOC: ERS 07:08
DX: K42.9 Umbilical hernia without obstruction or gangrene (principal); D61.818 Other pancytopenia; M19.90 Unspecified osteoarthritis, unspecified site; I25.2 Old myocardial infarction; I10 Essential (primary) hypertension
CPT/HCPCS: 36415; 74177; 80053; 83605; 83690; 85025; 85060; 93005; 96374; 96375; J2270; J2405

== ENCOUNTER 2021-09-01 08:47 | Day surgery (SDC) | payer MEDICARE ==
[~2021-09-01 08:47] MED LIST: FLU VACC QS2021-22(65YR UP)/PF 240 MCG/0.7 ML SYRINGE IM ONE
[2021-09-01 09:26] LABS: Prothrombin Time 13.3 sec (12.0-14.7)
[2021-09-01 10:02] LABS: PTT 39.6 sec (22.9-36.1)
[2021-09-01 12:52] VITALS: BP 131/92; TEMP 98.5; BMI 19.6
== END 2021-09-01 13:00 | disposition home or self-care (01) ==
LOC: CT 08:47
PROVIDERS: ATTEND Internal Medicine Hematology & Oncology
PROC: 07DR3ZX Extraction of Iliac Bone Marrow, Percutaneous Approach, Diagnostic (ICD-10-PCS; principal; 2021-09-01)
DX: D69.3 Immune thrombocytopenic purpura (principal); D61.818 Other pancytopenia; I10 Essential (primary) hypertension; I25.10 Atherosclerotic heart disease of native coronary artery without angina pectoris; E78.5 Hyperlipidemia, unspecified; M19.90 Unspecified osteoarthritis, unspecified site; E78.00 Pure hypercholesterolemia, unspecified; Z23 Encounter for immunization; Z87.891 Personal history of nicotine dependence; Z79.82 Long term (current) use of aspirin; Z79.899 Other long term (current) drug therapy; Z88.8 Allergy status to other drugs, medicaments and biological substances
CPT/HCPCS: 20225; 77012; 85610; 85730; 90662; 90732; G0008; G0009; 88184; 88237; 88264; 88280; 88305; 88311; 88313; 88341; 88342; 88365; 90471

== ENCOUNTER 2022-02-02 20:05 | Observation (INO) | payer MEDICARE ==
[~2022-02-02 20:05] MED LIST changes: -FLU VACC QS2021-22(65YR UP)/PF 240 MCG/0.7 ML SYRINGE IM ONE; +Iopamidol-370 76% 500 ML 1 ML ONE
[2022-02-02 20:31] LABS: Hemoglobin 13.7 g/dL (14.0-18.0); Mean Corpuscular HGB CONC 32.6 g/dL (32.0-36.0); Mean Corpuscular Hemoglobin 27.7 pg (27.0-31.0); Mean Corpuscular Volume 84.9 fL (78.0-98.0); Mean Platelet Volume 8.5 fL (7.4-10.4); Platelet Count 98 thou/uL (130-400); RBC Distribution Width 13.6 % (11.5-14.5); Red Blood Cell (RBC) Count 4.96 mill/uL (4.70-6.10); White Blood Cell (WBC) Count 6.2 thou/uL (4.8-10.8)
[2022-02-02 20:44] LABS: Band 2 % (5-11); Lymphocytes 62 % (21-51); MDiff Complete? YES; Monocytes 6 % (0-10); Neutrophil 26 % (42-75); Platelet Morphology Comment Appears Decreased; RBC Morphology Normal; Reactive Lymphocytes 4 % (0-10)
[2022-02-02 20:53] LABS: ALT (SGPT) 12 U/L (8-55); AST (SGOT) 33 U/L (5-34); Albumin 3.9 g/dL (3.4-4.8); Alkaline Phosphatase 66 U/L (40-110); Anion Gap 19 mmol/L (10-20); BUN (Urea Nitrogen) 18 mg/dL (8.4-25.7); Bilirubin, Total 0.5 mg/dL (0.2-1.2); Calc. Creatinine Clearance 0 mL/min (70-130); Calcium 9.3 mg/dL (7.8-10.44); Carbon Dioxide 26 mmol/L (23-31); Chloride 95 mmol/L (98-107); Estimated GFR 61; Globulin 3.6 g/dL (2.4-3.5); Glucose 106 mg/dL (80-115); Lipase 4 U/L (8-78); Potassium 3.7 mmol/L (3.5-5.1); Protein, Total 7.5 g/dL (5.8-8.1); Sodium 136 mmol/L (136-145)
[2022-02-03] MEDS ORDERED: Acetaminophen 325 MG TAB PO PRN (00:03)
[2022-02-03] MEDS ORDERED: Ketorolac Tromethamine 30 MG/ML VIAL IVP SCH (00:15)
[2022-02-03] MEDS ORDERED: Cyclobenzaprine 10 MG TAB PO PRN (00:44)
[2022-02-03 01:21] LABS: SARS-CoV-2 NAA Rapid Test Not Detected (NotDetected)
[2022-02-03 01:23] LABS: Troponin I Less than 0.010 ng/mL (< 0.028)
[2022-02-03 04:49] LABS: Hemoglobin A1c 5.7 % (4.0-6.0)
[2022-02-03 05:13] LABS: Troponin I Less than 0.010 ng/mL (< 0.028)
[2022-02-03 05:15] LABS: Anion Gap 17 mmol/L (10-20); BUN (Urea Nitrogen) 20 mg/dL (8.4-25.7); Calc. Creatinine Clearance 0 mL/min (70-130); Calcium 9.2 mg/dL (7.8-10.44); Carbon Dioxide 28 mmol/L (23-31); Cardiac Risk 5.5 (Less than 4.5); Chloride 94 mmol/L (98-107); Cholesterol 127 mg/dl (< 200 Desired); Estimated GFR 70; Glucose 100 mg/dL (80-115); HDL Cholesterol 23 mg/dL (>60 Neg Risk); LDL Cholesterol, Calculated 64 mg/dL; Potassium 3.3 mmol/L (3.5-5.1); Sodium 136 mmol/L (136-145); Triglycerides 200 mg/dL (Less than 150)
[2022-02-03 05:24] LABS: Mean Corpuscular HGB CONC 32.6 g/dL (32.0-36.0); Mean Corpuscular Hemoglobin 27.9 pg (27.0-31.0); Mean Corpuscular Volume 85.5 fL (78.0-98.0); Mean Platelet Volume 8.3 fL (7.4-10.4); Platelet Count 86 thou/uL (130-400); RBC Distribution Width 13.6 % (11.5-14.5); Red Blood Cell (RBC) Count 4.66 mill/uL (4.70-6.10); White Blood Cell (WBC) Count 5.3 thou/uL (4.8-10.8)
[2022-02-03 05:54] LABS: Band 5 % (5-11); Eosinophils 1 % (0-10); Hypochromia SLIGHT = 6-15 cells (100X) (0-5/hpf); Lymphocytes 48 % (21-51); MDiff Complete? YES; Monocytes 4 % (0-10); Neutrophil 34 % (42-75); Platelet Morphology Comment Appears Decreased; Reactive Lymphocytes 8 % (0-10)
[2022-02-03] MEDS ORDERED: Potassium Chloride 20 MEQ TAB PO SCH (07:19)
[2022-02-03 07:56] LABS: Magnesium 1.6 mg/dL (1.6-2.6)
[2022-02-03] MEDS ORDERED: Ketorolac Tromethamine 30 MG/ML VIAL IVP PRN (08:18)
[2022-02-03] MEDS ORDERED: Ketorolac Tromethamine 30 MG/ML VIAL ONE (08:21)
[2022-02-03] MEDS ORDERED: Potassium Chloride 20 MEQ TAB ONE (08:21)
[2022-02-03] MEDS ORDERED: Magnesium 2 GM/50 ML(in water) 2 GM in Premix Bag 1 BAG IVPB SCH (08:33)
[2022-02-03] MEDS ORDERED: Sodium Chloride 0.9% 1,000 ML IV SCH (08:45)
[2022-02-03] MEDS ORDERED: Nitroglycerin 0.4 MG TAB (25 Tab Bottle) SL PRN (09:27)
[2022-02-03] MEDS ORDERED: Magnesium 2 GM/50 ML BAG (IN WATER) ONE (09:38)
[2022-02-03] MEDS ORDERED: Regadenoson 0.4 MG/5 ML SYRINGE ONE (12:43)
[2022-02-03 14:00] VITALS: BMI 19.8
[2022-02-03] MEDS: Amlodipine 10 MG TAB PO SCH (14:33)
[2022-02-03] MEDS: Carvedilol 6.25 MG TAB PO SCH ×2 (14:34→20:48)
[2022-02-03] MEDS: Furosemide 20 MG TAB PO SCH (14:34)
[2022-02-03] MEDS: Aspirin Chewable 81 MG TAB PO SCH (14:36)
[2022-02-03] MEDS: HYDROcodone/Acetaminophen 5/325 mg Tablet PO PRN (14:50)
[2022-02-03] MEDS: Atorvastatin Calcium 40 MG TAB PO SCH (20:49)
[2022-02-04] MEDS ORDERED: Electrolyte Replacement Protocol 1 EACH FS SCH (07:45)
[2022-02-04 08:31] LABS: Anion Gap 15 mmol/L (10-20); BUN (Urea Nitrogen) 18 mg/dL (8.4-25.7); Calc. Creatinine Clearance 72 mL/min (70-130); Calcium 8.7 mg/dL (7.8-10.44); Carbon Dioxide 31 mmol/L (23-31); Chloride 97 mmol/L (98-107); Estimated GFR 79; Glucose 94 mg/dL (80-115); Magnesium 1.7 mg/dL (1.6-2.6); Potassium 3.8 mmol/L (3.5-5.1); Sodium 139 mmol/L (136-145)
[2022-02-04] MEDS ORDERED: Lidocaine 5% Patch TD SCH (09:00)
[2022-02-04] MEDS ORDERED: Magnesium 2 GM/50 ML(in water) 2 GM in Premix Bag 1 BAG IVPB SCH (09:00)
[2022-02-04] MEDS: Furosemide 20 MG TAB PO SCH (09:34)
[2022-02-04] MEDS: Diclofenac 1% 100 GM GEL TP SCH ×4 (09:34→19:55)
[2022-02-04] MEDS: Carvedilol 6.25 MG TAB PO SCH ×2 (09:34→19:54)
[2022-02-04] MEDS: Amlodipine 10 MG TAB PO SCH (09:34)
[2022-02-04] MEDS: Aspirin Chewable 81 MG TAB PO SCH (09:34)
[2022-02-04] MEDS ORDERED: Communication Order-Pharmacy FS PRN (09:45)
[2022-02-04] MEDS: Sodium Chloride 0.9% 1,000 ML IV SCH ×2 (10:31→18:19)
[2022-02-04] MEDS ORDERED: Lidocaine 1% PF 5 ML VIAL ONE (12:30)
[2022-02-04] MEDS ORDERED: Heparin 10,000 UNITS/ 10 ML VIAL ONE (12:30)
[2022-02-04] MEDS ORDERED: Nitroglycerin 100MG/250ML BOT 0 ML ONE (12:30)
[2022-02-04] MEDS ORDERED: Verapamil 5 MG/2 ML VIAL ONE (12:30)
[2022-02-04] MEDS ORDERED: Midazolam HCl 2 mg/2 ml Vial ONE (12:31)
[2022-02-04] MEDS ORDERED: Fentanyl 100 MCG/2 ML VIAL ONE (12:31)
[2022-02-04] MEDS ORDERED: Nitroglycerin 100MG/250ML BOT 250 ML ONE (12:34)
[2022-02-04] MEDS ORDERED: Sodium Chloride 0.9% 200 ML IV PRN (13:47)
[2022-02-04] MEDS ORDERED: Acetaminophen/Codeine 30-300mg Tablet PO PRN ×2 (13:47)
[2022-02-04] MEDS ORDERED: Nitroglycerin 0.4 MG TAB (25 Tab Bottle) SL PRN (13:47)
[2022-02-04] MEDS ORDERED: Sodium Chloride 0.9% 1,000 ML IV SCH (14:00)
[2022-02-04 19:07] VITALS: BP 143/86; TEMP 98.1
[2022-02-04] MEDS: Atorvastatin Calcium 40 MG TAB PO SCH (19:54)
[2022-02-04] MEDS: HYDROcodone/Acetaminophen 5/325 mg Tablet PO PRN (19:54)
[2022-02-04] MEDS ORDERED: Transdermal Patch Removal TOP SCH (21:00)
[2022-02-05] MEDS ORDERED: Spironolactone 25 MG TAB PO SCH (08:00)
[2022-02-05] MEDS ORDERED: Empagliflozin 10 MG TAB PO SCH (09:00)
== END 2022-02-04 20:57 | disposition home or self-care (01) ==
LOC: ERS 20:05 → ERHOLD 22:56 → 2SW 02-03 13:57 → OBSVTOIN 02-04 13:47 → INTOOBSV 02-04 13:47
PROVIDERS: ADMIT Family Medicine; ATTEND Family Medicine
PROC: 4A023N7 Measurement of Cardiac Sampling and Pressure, Left Heart, Percutaneous Approach (ICD-10-PCS; principal; 2022-02-04)
PROC: B2111ZZ Fluoroscopy of Multiple Coronary Arteries using Low Osmolar Contrast (ICD-10-PCS; 2022-02-04)
DX: R07.89 Other chest pain (principal); I25.10 Atherosclerotic heart disease of native coronary artery without angina pectoris; I11.0 Hypertensive heart disease with heart failure; I50.20 Unspecified systolic (congestive) heart failure; E78.1 Pure hyperglyceridemia; I42.8 Other cardiomyopathies; C91.00 Acute lymphoblastic leukemia not having achieved remission; I25.2 Old myocardial infarction; F17.290 Nicotine dependence, other tobacco product, uncomplicated; F12.11 Cannabis abuse, in remission; E87.6 Hypokalemia; F17.210 Nicotine dependence, cigarettes, uncomplicated; D61.818 Other pancytopenia; Z79.82 Long term (current) use of aspirin; Z79.899 Other long term (current) drug therapy; Z88.8 Allergy status to other drugs, medicaments and biological substances; Z20.822 Contact with and (suspected) exposure to COVID-19
CPT/HCPCS: 36415; 71045; 71275; 78452; 80048; 80053; 80061; 83036; 83690; 83735; 83880; 84443; 84484; 85025; 88184; 93005; 93017; 93458; 94640; 94760; 96365; 96375; 96376; 99152; A9500; G0378; J1644; J1885; J2250; J2785; J3010; J3475; J7050; J7620; Q9967; U0002

== ENCOUNTER 2022-02-11 08:42 | Emergency (ER) | payer MEDICARE, MEDICAID ==
[2022-02-11 11:13] LABS: ALT (SGPT) 13 U/L (8-55); AST (SGOT) 32 U/L (5-34); Albumin 4.1 g/dL (3.4-4.8); Alkaline Phosphatase 70 U/L (40-110); Anion Gap 19 mmol/L (10-20); BUN (Urea Nitrogen) 18 mg/dL (8.4-25.7); Bilirubin, Total 0.7 mg/dL (0.2-1.2); Calc. Creatinine Clearance 0 mL/min (70-130); Calcium 9.4 mg/dL (7.8-10.44); Carbon Dioxide 29 mmol/L (23-31); Chloride 92 mmol/L (98-107); Estimated GFR 70; Globulin 3.3 g/dL (2.4-3.5); Glucose 105 mg/dL (80-115); Potassium 3.7 mmol/L (3.5-5.1); Protein, Total 7.4 g/dL (5.8-8.1); Sodium 136 mmol/L (136-145)
[2022-02-11 11:35] LABS: Platelet Count 28 thou/uL (130-400)
[2022-02-11 11:51] LABS: Band 11 % (5-11); Differential Comment Blast-Like Cell(s); Eosinophils 1 % (0-10); Hemoglobin 13.6 g/dL (14.0-18.0); Lymphocytes 61 % (21-51); MDiff Complete? YES; Mean Corpuscular HGB CONC 32.6 g/dL (32.0-36.0); Mean Corpuscular Hemoglobin 27.7 pg (27.0-31.0); Mean Corpuscular Volume 84.9 fL (78.0-98.0); Mean Platelet Volume 10.5 fL (7.4-10.4); Neutrophil 14 % (42-75); Platelet Morphology Comment Appears Decreased; Polychromasia SLIGHT = 2-3 cells (100X) (0-2/hpf); RBC Distribution Width 13.6 % (11.5-14.5); Red Blood Cell (RBC) Count 4.91 mill/uL (4.70-6.10); Reflex for Review?? NO
[2022-02-11] MEDS ORDERED: predniSONE 20 MG TAB ONE (14:13)
[2022-02-11] MEDS ORDERED: Clindamycin 150 MG CAP ONE (14:14)
[2022-02-11] MEDS ORDERED: Iopamidol-370 76% 500 ML 1 ML ONE (14:40)
== END 2022-02-11 14:26 | disposition home or self-care (01) ==
LOC: ERS 08:42
DX: J44.9 Chronic obstructive pulmonary disease, unspecified (principal); D69.6 Thrombocytopenia, unspecified; K04.7 Periapical abscess without sinus; I10 Essential (primary) hypertension; I25.2 Old myocardial infarction; M19.90 Unspecified osteoarthritis, unspecified site; D09.8 Carcinoma in situ of other specified sites; Z87.891 Personal history of nicotine dependence; Z79.899 Other long term (current) drug therapy
CPT/HCPCS: 36415; 71045; 71275; 80053; 83605; 83880; 84484; 85025; 86850; 86900; 86901; 93005; J7512; J7620; Q9967

== ENCOUNTER 2022-03-03 22:12 | Inpatient (IN) | payer OTHER, MEDICAID ==
[2022-03-03 23:53] LABS: Hemoglobin 8.8 g/dL (14.0-18.0); Mean Corpuscular HGB CONC 33.3 g/dL (32.0-36.0); Mean Corpuscular Hemoglobin 27.7 pg (27.0-31.0); Mean Corpuscular Volume 83.1 fL (78.0-98.0); RBC Distribution Width 13.6 % (11.5-14.5); Red Blood Cell (RBC) Count 3.18 mill/uL (4.70-6.10); White Blood Cell (WBC) Count 3.7 thou/uL (4.8-10.8)
[2022-03-04 00:15] LABS: ALT (SGPT) 24 U/L (8-55); AST (SGOT) 41 U/L (5-34); Albumin 3.7 g/dL (3.4-4.8); Alkaline Phosphatase 65 U/L (40-110); Anion Gap 16 mmol/L (10-20); BUN (Urea Nitrogen) 19 mg/dL (8.4-25.7); Bilirubin, Total 0.8 mg/dL (0.2-1.2); Calc. Creatinine Clearance 0 mL/min (70-130); Calcium 8.6 mg/dL (7.8-10.44); Carbon Dioxide 29 mmol/L (23-31); Chloride 91 mmol/L (98-107); Estimated GFR 67; Globulin 2.9 g/dL (2.4-3.5); Glucose 110 mg/dL (80-115); Potassium 3.7 mmol/L (3.5-5.1); Protein, Total 6.6 g/dL (5.8-8.1); Sodium 132 mmol/L (136-145)
[2022-03-04 00:40] LABS: CKMB 2.8 ng/mL (0-6.6)
[2022-03-04 00:44] LABS: Band 1 % (5-11); Lymphocytes 57 % (21-51); MDiff Complete? YES; Metamyelocyte 1 % (0-0); Neutrophil 5 % (42-75); Platelet Count 52 thou/uL (130-400); Platelet Morphology Comment Appears Decreased; RBC Morphology Normal
[2022-03-04] MEDS ORDERED: Senokot S 8.6-50 MG TAB PO PRN (01:33)
[2022-03-04] MEDS ORDERED: Ondansetron PF 4 MG/2 ML Vial IVP PRN (01:33)
[2022-03-04] MEDS ORDERED: Dextrose 50% Abboject 50 ML SYRINGE SLOW IVP PRN (01:44)
[2022-03-04] MEDS ORDERED: Dextrose 5% in Water 1,000 ML IV PRN (01:44)
[2022-03-04] MEDS ORDERED: HumaLOG 300 UNITS/3 ML VIAL SC PRN (01:44)
[2022-03-04] MEDS ORDERED: hydrALAZINE 20 MG/ML VIAL SLOW IVP PRN (01:47)
[2022-03-04] MEDS ORDERED: Sodium Chloride 0.9% 1,000 ML IV SCH (01:59)
[2022-03-04] MEDS ORDERED: cefTRIAXone\\ROCEPHIN 1 GM in Sodium Chloride 0.9% 100 ML IVPB SCH (03:00)
[2022-03-04 04:40] LABS: Hemoglobin A1c 6.4 % (4.0-6.0)
[2022-03-04 04:49] LABS: ALT (SGPT) 23 U/L (8-55); AST (SGOT) 35 U/L (5-34); Albumin 3.6 g/dL (3.4-4.8); Alkaline Phosphatase 68 U/L (40-110); Anion Gap 14 mmol/L (10-20); BUN (Urea Nitrogen) 18 mg/dL (8.4-25.7); Bilirubin, Total 0.9 mg/dL (0.2-1.2); Calc. Creatinine Clearance 0 mL/min (70-130); Calcium 8.8 mg/dL (7.8-10.44); Carbon Dioxide 31 mmol/L (23-31); Cardiac Risk 4.7 (Less than 4.5); Chloride 91 mmol/L (98-107); Cholesterol 113 mg/dl (< 200 Desired); Estimated GFR 73; Globulin 3.1 g/dL (2.4-3.5); Glucose 107 mg/dL (80-115); HDL Cholesterol 24 mg/dL (>60 Neg Risk); LDL Cholesterol, Calculated 61 mg/dL; Potassium 3.9 mmol/L (3.5-5.1); Protein, Total 6.7 g/dL (5.8-8.1); Sodium 132 mmol/L (136-145); Triglycerides 141 mg/dL (Less than 150)
[2022-03-04 05:02] LABS: Blast 33 % (0-0); Lymphocytes 65 % (21-51); MDiff Complete? YES; Mean Corpuscular HGB CONC 33.7 g/dL (32.0-36.0); Mean Corpuscular Hemoglobin 28.2 pg (27.0-31.0); Mean Corpuscular Volume 83.6 fL (78.0-98.0); Mean Platelet Volume 9.5 fL (7.4-10.4); Neutrophil 2 % (42-75); Platelet Count 52 thou/uL (130-400); Platelet Morphology Comment Appears Decreased; RBC Distribution Width 13.8 % (11.5-14.5); RBC Morphology Normal; Red Blood Cell (RBC) Count 3.21 mill/uL (4.70-6.10); Reflex for Review?? NO; White Blood Cell (WBC) Count 3.5 thou/uL (4.8-10.8)
[2022-03-04 05:14] LABS: CKMB 3.1 ng/mL (0-6.6)
[2022-03-04 05:43] VITALS: BMI 19.3
[2022-03-04] MEDS: HYDROcodone/Acetaminophen 5/325 mg Tablet PO PRN ×3 (07:52→18:07)
[2022-03-04] MEDS ORDERED: Spironolactone 25 MG TAB PO SCH (08:00)
[2022-03-04] MEDS ORDERED: predniSONE 20 MG TAB PO SCH (08:00)
[2022-03-04 08:36] LABS: CKMB 3.7 ng/mL (0-6.6)
[2022-03-04] MEDS: Carvedilol 6.25 MG TAB PO SCH ×2 (08:53→19:38)
[2022-03-04] MEDS: Empagliflozin 10 MG TAB PO SCH ×2 (08:55→09:04)
[2022-03-04] MEDS ORDERED: FLU VACC QS2022-23(65YR UP)/PF 240 MCG/0.7 ML SYRINGE IM ONE (09:00)
[2022-03-04] MEDS ORDERED: Amoxicillin/Potassium Clav 875 MG TAB PO SCH (09:00)
[2022-03-04] MEDS ORDERED: Aspirin 81 mg Enteric Coated Tablet PO SCH (09:00)
[2022-03-04] MEDS ORDERED: Furosemide 20 MG TAB PO SCH (09:00)
[2022-03-04] MEDS ORDERED: Amlodipine 10 MG TAB PO SCH (09:00)
[2022-03-04 19:35] VITALS: BP 115/77; TEMP 97.6
[2022-03-04] MEDS ORDERED: Atorvastatin Calcium 40 MG TAB PO SCH (21:00)
[2022-03-05] MEDS ORDERED: hydrALAZINE 25 MG TAB PO SCH (08:00)
[2022-03-05] MEDS ORDERED: Allopurinol 300 MG TAB PO SCH (09:00)
[2022-03-05] MEDS ORDERED: Amlodipine 5 MG TAB PO SCH (09:00)
== END 2022-03-04 20:45 | disposition short-term general hospital (02) | DRG 808 ==
LOC: ERS 22:12 → 2NO 03-04 01:27
PROVIDERS: ADMIT Emergency Medicine; ATTEND Internal Medicine
DX: D61.818 Other pancytopenia (principal); I21.A1 Myocardial infarction type 2; C91.00 Acute lymphoblastic leukemia not having achieved remission; I42.8 Other cardiomyopathies; I50.22 Chronic systolic (congestive) heart failure; E87.1 Hypo-osmolality and hyponatremia; J43.2 Centrilobular emphysema; I11.0 Hypertensive heart disease with heart failure; J02.9 Acute pharyngitis, unspecified; F12.10 Cannabis abuse, uncomplicated; T50.996A Underdosing of other drugs, medicaments and biological substances, initial encounter; Z20.822 Contact with and (suspected) exposure to COVID-19; Z91.14 Patient's other noncompliance with medication regimen; E78.5 Hyperlipidemia, unspecified; Z79.82 Long term (current) use of aspirin; Z79.899 Other long term (current) drug therapy; I25.10 Atherosclerotic heart disease of native coronary artery without angina pectoris; I25.2 Old myocardial infarction; Z87.891 Personal history of nicotine dependence; M19.90 Unspecified osteoarthritis, unspecified site; Z86.19 Personal history of other infectious and parasitic diseases
CPT/HCPCS: 36415; 36416; 36430; 71045; 80053; 80061; 82553; 83036; 83880; 84484; 85025; 86850; 86900; 86901; 87811; 93005; 93010; 93306; J0696; J3490; J7512; P9035

== ENCOUNTER 2022-07-01 16:38 | Emergency (ER) | payer OTHER, MEDICAID ==
[2022-07-01] MEDS ORDERED: Lidocaine 1% PF 5 ML VIAL ONE (17:03)
[2022-07-01 18:07] LABS: #Eosinphils 0.1 thou/uL (0.0-0.7); #Lymphocytes 1.6 thou/uL (1.20-3.40); #Monocytes 0.7 thou/uL (0.11-0.59); #Neutrophils 2.5 thou/uL (1.40-6.50); %Basophils 0.3 % (0.0-1.0); %Eosinophils 2.4 % (0.0-10.0); %Lymphocytes 32.3 % (21.0-51.0); %Monocytes 13.6 % (0.0-10.0); %Neutrophils 51.5 % (42.0-75.0); Hemoglobin 12.6 g/dL (14.0-18.0); Mean Corpuscular HGB CONC 31.1 g/dL (32.0-36.0); Mean Corpuscular Hemoglobin 27.7 pg (27.0-31.0); Mean Platelet Volume 10.4 fL (7.4-10.4); Platelet Count 130 10x3/uL (130-400); RBC Distribution Width 15.3 % (11.5-14.5); Red Blood Cell (RBC) Count 4.54 mill/uL (4.70-6.10); White Blood Cell (WBC) Count 4.9 10x3/uL (4.8-10.8)
[2022-07-01 18:25] LABS: ALT (SGPT) 9 U/L (8-55); AST (SGOT) 18 U/L (5-34); Alkaline Phosphatase 72 U/L (40-110); Anion Gap 13 mmol/L (10-20); BUN (Urea Nitrogen) 20 mg/dL (8.4-25.7); Bilirubin, Total 0.3 mg/dL (0.2-1.2); Calc. Creatinine Clearance 0 mL/min (70-130); Calcium 9.4 mg/dL (7.8-10.44); Carbon Dioxide 28 mmol/L (23-31); Chloride 101 mmol/L (98-107); Estimated GFR 72; Globulin 3.8 g/dL (2.4-3.5); Glucose 85 mg/dL (80-115); Potassium 4.3 mmol/L (3.5-5.1); Protein, Total 7.8 g/dL (5.8-8.1); Sodium 138 mmol/L (136-145)
[2022-07-01 18:26] LABS: CRP (Inflammatory) 8.24 mg/dL (= or < 0.5); Uric Acid 5.6 mg/dL (3.5-7.2)
[2022-07-01 18:37] LABS: BF Color Red; Body Fluid Source Synovial Fluid; Clarity Cloudy/Turbid (Clear); RBC Count-Automated (BF) 53136 /cu.mm; Tube # EDTA; WBC/Nucleated-Auto (BF) 5643 /cu.mm
[2022-07-01 18:39] LABS: BF Segmented Neutrophils 65 %; Cell Count Non Hematic 35 %
== END 2022-07-01 18:31 | disposition home or self-care (01) ==
LOC: ERS 16:38
DX: M17.11 Unilateral primary osteoarthritis, right knee (principal); I10 Essential (primary) hypertension; Z87.891 Personal history of nicotine dependence
CPT/HCPCS: 20610; 36415; 80053; 82945; 84550; 85025; 85060; 85652; 86140; 87070; 87205; 89051; 89060

== ENCOUNTER 2022-08-03 12:37 | Inpatient (IN) | payer OTHER, MEDICAID ==
[2022-08-03 13:34] LABS: Hemoglobin 6.8 g/dL (14.0-18.0); Mean Corpuscular HGB CONC 32.4 g/dL (32.0-36.0); Mean Corpuscular Hemoglobin 27.9 pg (27.0-31.0); Platelet Count Less than 2 10x3/uL (130-400); RBC Distribution Width 14.6 % (11.5-14.5); Red Blood Cell (RBC) Count 2.44 mill/uL (4.70-6.10); White Blood Cell (WBC) Count 0.7 10x3/uL (4.8-10.8)
[2022-08-03 13:42] LABS: INR-International Normal Ratio 1.1; PTT 36.3 sec (22.9-36.1); Prothrombin Time 14.3 sec (12.0-14.7)
[2022-08-03 13:53] LABS: Eosinophils 4 % (0-10); Lymphocytes 92 % (21-51); MDiff Complete? YES; Neutrophil 4 % (42-75); Ovalocytes SLIGHT = 2-5 cells (100X) (0-1/hpf); Platelet Morphology Comment Appears Decreased; Polychromasia SLIGHT = 2-3 cells (100X) (0-2/hpf)
[2022-08-03 13:56] LABS: ALT (SGPT) 9 U/L (8-55); AST (SGOT) 12 U/L (5-34); Albumin 3.4 g/dL (3.4-4.8); Alkaline Phosphatase 56 U/L (40-110); Anion Gap 12 mmol/L (10-20); BUN (Urea Nitrogen) 40 mg/dL (8.4-25.7); Bilirubin, Total 0.3 mg/dL (0.2-1.2); Calc. Creatinine Clearance 0 mL/min (70-130); Calcium 7.9 mg/dL (7.8-10.44); Carbon Dioxide 20 mmol/L (23-31); Chloride 106 mmol/L (98-107); Estimated GFR 82; Globulin 2.5 g/dL (2.4-3.5); Glucose 96 mg/dL (80-115); Potassium 4.2 mmol/L (3.5-5.1); Protein, Total 5.9 g/dL (5.8-8.1); Sodium 134 mmol/L (136-145)
[2022-08-03] MEDS ORDERED: Pantoprazole 40 MG VIAL ONE (13:57)
[2022-08-03] MEDS ORDERED: HYDROcodone/Acetaminophen 5/325 mg Tablet ONE (17:00)
[2022-08-03 17:20] LABS: Hemoglobin 7.5 g/dL (14.0-18.0); Mean Corpuscular HGB CONC 33.1 g/dL (32.0-36.0); Mean Corpuscular Hemoglobin 28.3 pg (27.0-31.0); Mean Corpuscular Volume 85.7 fl (78.0-98.0); Mean Platelet Volume 11.2 fL (7.4-10.4); Platelet Count 35 10x3/uL (130-400); RBC Distribution Width 14.3 % (11.5-14.5); Red Blood Cell (RBC) Count 2.65 mill/uL (4.70-6.10)
[2022-08-03 17:22] LABS: White Blood Cell (WBC) Count 0.9 10x3/uL (4.8-10.8)
[2022-08-03 17:36] LABS: Lymphocytes 96 % (21-51); MDiff Complete? YES; Neutrophil 4 % (42-75); Ovalocytes SLIGHT = 2-5 cells (100X) (0-1/hpf); Platelet Morphology Comment Appears Decreased; Polychromasia SLIGHT = 2-3 cells (100X) (0-2/hpf)
[2022-08-03] MEDS ORDERED: Acetaminophen 325 MG TAB PO PRN (17:43)
[2022-08-03] MEDS ORDERED: traMADol HCl 50 MG TAB PO PRN (17:58)
[2022-08-03 19:40] VITALS: BMI 18.9
[2022-08-03] MEDS: Carvedilol 6.25 MG TAB PO SCH (20:09)
[2022-08-03] MEDS: Atorvastatin Calcium 40 MG TAB PO SCH (20:10)
[2022-08-03 23:01] LABS: Mean Corpuscular HGB CONC 33.4 g/dL (32.0-36.0); Mean Corpuscular Hemoglobin 28.7 pg (27.0-31.0); Mean Corpuscular Volume 86.1 fl (78.0-98.0); Mean Platelet Volume 8.4 fL (7.4-10.4); Platelet Count 64 10x3/uL (130-400); RBC Distribution Width 14.1 % (11.5-14.5); Red Blood Cell (RBC) Count 2.44 mill/uL (4.70-6.10); White Blood Cell (WBC) Count 0.9 10x3/uL (4.8-10.8)
[2022-08-03 23:17] LABS: Hypochromia SLIGHT = 6-15 cells (100X) (0-5/hpf); Lymphocytes 80 % (21-51); MDiff Complete? YES; Monocytes 4 % (0-10); Neutrophil 16 % (42-75); Platelet Morphology Comment Appears Decreased
[2022-08-04 06:04] LABS: Hemoglobin 6.9 g/dL (14.0-18.0); Mean Corpuscular HGB CONC 33.2 g/dL (32.0-36.0); Mean Corpuscular Hemoglobin 28.4 pg (27.0-31.0); Mean Corpuscular Volume 85.7 fl (78.0-98.0); Mean Platelet Volume 9.2 fL (7.4-10.4); Platelet Count 58 10x3/uL (130-400); RBC Distribution Width 14.3 % (11.5-14.5); Red Blood Cell (RBC) Count 2.44 mill/uL (4.70-6.10); White Blood Cell (WBC) Count 0.8 10x3/uL (4.8-10.8)
[2022-08-04 06:05] LABS: ALT (SGPT) 11 U/L (8-55); AST (SGOT) 14 U/L (5-34); Albumin 3.2 g/dL (3.4-4.8); Alkaline Phosphatase 56 U/L (40-110); Anion Gap 13 mmol/L (10-20); BUN (Urea Nitrogen) 28 mg/dL (8.4-25.7); Bilirubin, Total 0.4 mg/dL (0.2-1.2); Calc. Creatinine Clearance 78 mL/min (70-130); Carbon Dioxide 24 mmol/L (23-31); Chloride 104 mmol/L (98-107); Estimated GFR 89; Globulin 2.5 g/dL (2.4-3.5); Glucose 87 mg/dL (80-115); Protein, Total 5.7 g/dL (5.8-8.1); Sodium 137 mmol/L (136-145)
[2022-08-04 06:09] LABS: Hypochromia SLIGHT = 6-15 cells (100X) (0-5/hpf); Lymphocytes 70 % (21-51); MDiff Complete? YES; Monocytes 10 % (0-10); Neutrophil 20 % (42-75); Platelet Morphology Comment Appears Decreased
[2022-08-04] MEDS: Spironolactone 25 MG TAB PO SCH (08:34)
[2022-08-04] MEDS: Carvedilol 6.25 MG TAB PO SCH ×2 (08:37→21:18)
[2022-08-04] MEDS: Amlodipine 10 MG TAB PO SCH (08:37)
[2022-08-04] MEDS: Furosemide 20 MG TAB PO SCH (08:38)
[2022-08-04] MEDS: Empagliflozin 10 MG TAB PO SCH (08:38)
[2022-08-04] MEDS: HYDROcodone/Acetaminophen 5/325 mg Tablet PO PRN ×2 (12:52→21:18)
[2022-08-04 17:53] LABS: Hemoglobin 7.5 g/dL (14.0-18.0); Platelet Count 42 10x3/uL (130-400)
[2022-08-04] MEDS: Atorvastatin Calcium 40 MG TAB PO SCH (21:18)
[2022-08-04] MEDS: Acyclovir 400 mg Tablet PO SCH (21:18)
[2022-08-05 05:01] LABS: Hemoglobin 7.5 g/dL (14.0-18.0); Mean Corpuscular HGB CONC 33.3 g/dL (32.0-36.0); Mean Corpuscular Hemoglobin 28.4 pg (27.0-31.0); Mean Corpuscular Volume 85.2 fl (78.0-98.0); Mean Platelet Volume 8.9 fL (7.4-10.4); Platelet Count 43 10x3/uL (130-400); RBC Distribution Width 13.8 % (11.5-14.5); Red Blood Cell (RBC) Count 2.64 mill/uL (4.70-6.10); White Blood Cell (WBC) Count 0.8 10x3/uL (4.8-10.8)
[2022-08-05 05:17] LABS: ALT (SGPT) 12 U/L (8-55); AST (SGOT) 15 U/L (5-34); Albumin 3.5 g/dL (3.4-4.8); Alkaline Phosphatase 63 U/L (40-110); Anion Gap 11 mmol/L (10-20); BUN (Urea Nitrogen) 18 mg/dL (8.4-25.7); Bilirubin, Total 0.5 mg/dL (0.2-1.2); Calc. Creatinine Clearance 80 mL/min (70-130); Calcium 8.1 mg/dL (7.8-10.44); Carbon Dioxide 26 mmol/L (23-31); Chloride 103 mmol/L (98-107); Estimated GFR 92; Globulin 2.6 g/dL (2.4-3.5); Glucose 95 mg/dL (80-115); Magnesium 1.9 mg/dL (1.6-2.6); Potassium 3.8 mmol/L (3.5-5.1); Protein, Total 6.1 g/dL (5.8-8.1); Sodium 136 mmol/L (136-145)
[2022-08-05 05:32] LABS: Lymphocytes 96 % (21-51); MDiff Complete? YES; Monocytes 4 % (0-10); Platelet Morphology Comment Appears Decreased; RBC Morphology Normal
[2022-08-05] MEDS: HYDROcodone/Acetaminophen 5/325 mg Tablet PO PRN (06:02)
[2022-08-05] MEDS: Spironolactone 25 MG TAB PO SCH (07:46)
[2022-08-05] MEDS ORDERED: Fluconazole 100 MG TAB PO SCH (09:00)
[2022-08-05 09:32] VITALS: BP 124/73; TEMP 98.1
[2022-08-05] MEDS: Carvedilol 6.25 MG TAB PO SCH (09:43)
[2022-08-05] MEDS: Amlodipine 10 MG TAB PO SCH (09:43)
[2022-08-05] MEDS: Empagliflozin 10 MG TAB PO SCH (09:43)
[2022-08-05] MEDS: Acyclovir 400 mg Tablet PO SCH (09:43)
[2022-08-05] MEDS: Furosemide 20 MG TAB PO SCH (09:43)
== END 2022-08-05 11:02 | disposition home or self-care (01) | DRG 809 ==
LOC: ERS 12:37 → ERHOLD 16:31 → 2SW 18:51 → OBSVTOIN 08-04 15:10
PROVIDERS: ADMIT Internal Medicine; ATTEND Nurse Practitioner Family
PROC: 30233N1 Transfusion of Nonautologous Red Blood Cells into Peripheral Vein, Percutaneous Approach (ICD-10-PCS; principal; 2022-08-03)
PROC: 6A551Z2 Pheresis of Platelets, Multiple (ICD-10-PCS; 2022-08-03)
DX: D61.810 Antineoplastic chemotherapy induced pancytopenia (principal); C91.00 Acute lymphoblastic leukemia not having achieved remission; I42.8 Other cardiomyopathies; I50.22 Chronic systolic (congestive) heart failure; J43.9 Emphysema, unspecified; I25.10 Atherosclerotic heart disease of native coronary artery without angina pectoris; K64.4 Residual hemorrhoidal skin tags; T45.1X5A Adverse effect of antineoplastic and immunosuppressive drugs, initial encounter; F12.10 Cannabis abuse, uncomplicated; I11.0 Hypertensive heart disease with heart failure; E78.5 Hyperlipidemia, unspecified; Z71.51 Drug abuse counseling and surveillance of drug abuser; Z91.14 Patient's other noncompliance with medication regimen; Z88.8 Allergy status to other drugs, medicaments and biological substances; Z79.82 Long term (current) use of aspirin; Z79.899 Other long term (current) drug therapy; I25.2 Old myocardial infarction
CPT/HCPCS: 36415; 36430; 71046; 80053; 82274; 83735; 85025; 85610; 85730; 86850; 86900; 86901; 93005; 94760; 96361; 96374; C9113; G0378; P9016; P9035; U0003; U0005

== ENCOUNTER 2022-08-08 07:35 | Inpatient (IN) | payer OTHER, MEDICAID ==
[2022-08-08 08:13] LABS: Hemoglobin 8.1 g/dL (14.0-18.0); Mean Corpuscular HGB CONC 33.6 g/dL (32.0-36.0); Mean Corpuscular Hemoglobin 28.4 pg (27.0-31.0); Mean Corpuscular Volume 84.4 fl (78.0-98.0); Mean Platelet Volume 10.5 fL (7.4-10.4); Platelet Count 27 10x3/uL (130-400); RBC Distribution Width 13.7 % (11.5-14.5); Red Blood Cell (RBC) Count 2.85 mill/uL (4.70-6.10); White Blood Cell (WBC) Count 0.6 10x3/uL (4.8-10.8)
[2022-08-08 08:36] LABS: ALT (SGPT) 12 U/L (8-55); AST (SGOT) 14 U/L (5-34); Albumin 3.9 g/dL (3.4-4.8); Alkaline Phosphatase 69 U/L (40-110); Anion Gap 13 mmol/L (10-20); BUN (Urea Nitrogen) 15 mg/dL (8.4-25.7); Bilirubin, Total 0.3 mg/dL (0.2-1.2); CK (CPK) 158 U/L (30-200); Calc. Creatinine Clearance 0 mL/min (70-130); Calcium 8.4 mg/dL (7.8-10.44); Carbon Dioxide 25 mmol/L (23-31); Chloride 100 mmol/L (98-107); Estimated GFR 80; Globulin 3.1 g/dL (2.4-3.5); Glucose 103 mg/dL (80-115); Potassium 3.6 mmol/L (3.5-5.1); Sodium 134 mmol/L (136-145)
[2022-08-08 08:58] LABS: Lymphocytes 83 % (21-51); MDiff Complete? YES; Monocytes 7 % (0-10); Platelet Morphology Comment Appears Decreased; Polychromasia SLIGHT = 2-3 cells (100X) (0-2/hpf); Reactive Lymphocytes 10 % (0-10)
[2022-08-08] MEDS ORDERED: Cefepime 2 GM VIAL ONE (09:14)
[2022-08-08] MEDS ORDERED: Dextrose 5% in Water 1,000 ML IV PRN (09:31)
[2022-08-08] MEDS ORDERED: HumaLOG 300 UNITS/3 ML VIAL SC PRN ×2 (09:31)
[2022-08-08] MEDS ORDERED: Dextrose 50% Abboject 50 ML SYRINGE SLOW IVP PRN (09:31)
[2022-08-08] MEDS ORDERED: Acetaminophen 500 MG TAB ONE (11:05)
[2022-08-08 12:07] LABS: SARS-CoV-2 NAA Rapid Test Not Detected (NotDetected)
[2022-08-08 13:11] VITALS: BMI 19.2
[2022-08-08] MEDS: traMADol HCl 50 MG TAB PO PRN (13:55)
[2022-08-08] MEDS: Carvedilol 6.25 MG TAB PO SCH (16:06)
[2022-08-08] MEDS: Cefepime 2 GM in Sodium Chloride 0.9% 100 ML IVPB SCH ×2 (16:08→23:59)
[2022-08-08] MEDS: Ondansetron PF 4 MG/2 ML Vial IVP PRN (18:22)
[2022-08-08] MEDS: Atorvastatin Calcium 40 MG TAB PO SCH (20:22)
[2022-08-08] MEDS: Acetaminophen 325 MG TAB PO PRN (20:23)
[2022-08-08] MEDS: Acyclovir 400 mg Tablet PO SCH (20:23)
[2022-08-08] MEDS ORDERED: Metoclopramide HCl 10 MG/2 ML VIAL IVP SCH (20:45)
[2022-08-08 23:27] LABS: SARS-CoV-2 NAA Rapid Test Not Detected (NotDetected)
[2022-08-09] MEDS: Ipratropium/Albuterol 3 ML NEB NEB PRN ×2 (04:25→21:09)
[2022-08-09 07:16] LABS: Hemoglobin A1c 5.9 % (4.0-6.0)
[2022-08-09 07:17] LABS: Hemoglobin 7.2 g/dL (14.0-18.0); Mean Corpuscular HGB CONC 33.7 g/dL (32.0-36.0); Mean Corpuscular Hemoglobin 28.4 pg (27.0-31.0); Mean Corpuscular Volume 84.3 fl (78.0-98.0); Mean Platelet Volume 11.8 fL (7.4-10.4); Platelet Count 22 10x3/uL (130-400); RBC Distribution Width 13.5 % (11.5-14.5); Red Blood Cell (RBC) Count 2.53 mill/uL (4.70-6.10); White Blood Cell (WBC) Count 0.3 10x3/uL (4.8-10.8)
[2022-08-09 07:35] LABS: ALT (SGPT) 11 U/L (8-55); AST (SGOT) 14 U/L (5-34); Albumin 3.6 g/dL (3.4-4.8); Alkaline Phosphatase 65 U/L (40-110); Anion Gap 14 mmol/L (10-20); BUN (Urea Nitrogen) 17 mg/dL (8.4-25.7); Bilirubin, Direct 0.2 mg/dL (0.1-0.3); Bilirubin, Total 0.4 mg/dL (0.2-1.2); Calc. Creatinine Clearance 78 mL/min (70-130); Calcium 8.2 mg/dL (7.8-10.44); Carbon Dioxide 24 mmol/L (23-31); Chloride 96 mmol/L (98-107); Estimated GFR 88; Glucose 103 mg/dL (80-115); Magnesium 1.8 mg/dL (1.6-2.6); Potassium 3.9 mmol/L (3.5-5.1); Protein, Total 6.7 g/dL (5.8-8.1); Sodium 130 mmol/L (136-145)
[2022-08-09 07:45] LABS: MDiff Complete? YES; Platelet Morphology Comment Appears Decreased; Polychromasia SLIGHT = 2-3 cells (100X) (0-2/hpf)
[2022-08-09] MEDS: Carvedilol 6.25 MG TAB PO SCH ×2 (08:16→18:11)
[2022-08-09] MEDS: Spironolactone 25 MG TAB PO SCH (08:17)
[2022-08-09] MEDS: Acyclovir 400 mg Tablet PO SCH ×2 (08:17→20:52)
[2022-08-09] MEDS: Amlodipine 10 MG TAB PO SCH (08:17)
[2022-08-09] MEDS: Cefepime 2 GM in Sodium Chloride 0.9% 100 ML IVPB SCH ×2 (08:18→18:02)
[2022-08-09] MEDS: Fluconazole 100 MG TAB PO SCH (08:20)
[2022-08-09] MEDS: Furosemide 20 MG TAB PO SCH (08:20)
[2022-08-09] MEDS: Acetaminophen 325 MG TAB PO PRN (08:20)
[2022-08-09] MEDS: Aspirin Chewable 81 MG TAB PO SCH (08:32)
[2022-08-09] MEDS ORDERED: Aspirin Chewable 81 MG TAB PO SCH (09:00)
[2022-08-09] MEDS: traMADol HCl 50 MG TAB PO PRN ×2 (11:42→20:51)
[2022-08-09] MEDS: Atorvastatin Calcium 40 MG TAB PO SCH (20:52)
[2022-08-10] MEDS: Cefepime 2 GM in Sodium Chloride 0.9% 100 ML IVPB SCH ×3 (00:26→20:19)
[2022-08-10] MEDS: Acetaminophen 325 MG TAB PO PRN (00:26)
[2022-08-10 06:20] LABS: Hemoglobin 6.4 g/dL (14.0-18.0); Mean Corpuscular HGB CONC 33.1 g/dL (32.0-36.0); Mean Corpuscular Hemoglobin 28.1 pg (27.0-31.0); Mean Corpuscular Volume 84.7 fl (78.0-98.0); Mean Platelet Volume 10.4 fL (7.4-10.4); Platelet Count 22 10x3/uL (130-400); RBC Distribution Width 13.5 % (11.5-14.5); Red Blood Cell (RBC) Count 2.27 mill/uL (4.70-6.10); White Blood Cell (WBC) Count 1.1 10x3/uL (4.8-10.8)
[2022-08-10 06:42] LABS: Anion Gap 12 mmol/L (10-20); BUN (Urea Nitrogen) 26 mg/dL (8.4-25.7); Calc. Creatinine Clearance 57 mL/min (70-130); Calcium 8.3 mg/dL (7.8-10.44); Carbon Dioxide 26 mmol/L (23-31); Chloride 95 mmol/L (98-107); Estimated GFR 61; Glucose 122 mg/dL (80-115); Magnesium 1.8 mg/dL (1.6-2.6); Potassium 3.8 mmol/L (3.5-5.1); Sodium 129 mmol/L (136-145)
[2022-08-10 06:49] LABS: Band 2 % (5-11); Lymphocytes 30 % (21-51); MDiff Complete? YES; Monocytes 60 % (0-10); Neutrophil 8 % (42-75); Ovalocytes SLIGHT = 2-5 cells (100X) (0-1/hpf); Platelet Morphology Comment Appears Decreased; Tear Drops SLIGHT = 2-5 cells (100X) (0-1/hpf)
[2022-08-10] MEDS: Ondansetron PF 4 MG/2 ML Vial IVP PRN ×2 (09:13→20:20)
[2022-08-10] MEDS: Fluconazole 100 MG TAB PO SCH (09:17)
[2022-08-10] MEDS: Furosemide 20 MG TAB PO SCH (09:18)
[2022-08-10] MEDS: Aspirin Chewable 81 MG TAB PO SCH (09:18)
[2022-08-10] MEDS: Acyclovir 400 mg Tablet PO SCH ×2 (09:24→20:19)
[2022-08-10] MEDS: Spironolactone 25 MG TAB PO SCH (09:25)
[2022-08-10] MEDS: Carvedilol 6.25 MG TAB PO SCH ×2 (09:25→18:07)
[2022-08-10] MEDS: Amlodipine 10 MG TAB PO SCH (09:25)
[2022-08-10] MEDS: traMADol HCl 50 MG TAB PO PRN ×2 (09:30→19:31)
[2022-08-10] MEDS ORDERED: Iopamidol-370 76% 500 ML 1 ML ONE (11:35)
[2022-08-10] MEDS: Atorvastatin Calcium 40 MG TAB PO SCH (20:19)
[2022-08-11] MEDS: Cefepime 2 GM in Sodium Chloride 0.9% 100 ML IVPB SCH ×3 (02:59→17:31)
[2022-08-11] MEDS: traMADol HCl 50 MG TAB PO PRN ×2 (03:05→18:41)
[2022-08-11 06:02] LABS: Hemoglobin 7.6 g/dL (14.0-18.0); Mean Corpuscular HGB CONC 33.4 g/dL (32.0-36.0); Mean Corpuscular Hemoglobin 28.3 pg (27.0-31.0); Mean Corpuscular Volume 84.6 fl (78.0-98.0); Mean Platelet Volume 9.4 fL (7.4-10.4); Platelet Count 48 10x3/uL (130-400); RBC Distribution Width 13.6 % (11.5-14.5); White Blood Cell (WBC) Count 2.5 10x3/uL (4.8-10.8)
[2022-08-11 06:30] LABS: Anion Gap 10 mmol/L (10-20); BUN (Urea Nitrogen) 21 mg/dL (8.4-25.7); Calc. Creatinine Clearance 74 mL/min (70-130); Calcium 8.4 mg/dL (7.8-10.44); Carbon Dioxide 28 mmol/L (23-31); Chloride 97 mmol/L (98-107); Estimated GFR 82; Glucose 101 mg/dL (80-115); Potassium 3.7 mmol/L (3.5-5.1); Sodium 131 mmol/L (136-145)
[2022-08-11 06:54] LABS: Band 1 % (5-11); Eosinophils 1 % (0-10); Lymphocytes 28 % (21-51); MDiff Complete? YES; Monocytes 50 % (0-10); Neutrophil 20 % (42-75); Ovalocytes SLIGHT = 2-5 cells (100X) (0-1/hpf); Platelet Morphology Comment Appears Decreased; Stomatocytes SLIGHT = 2-5 cells (100X) (0-1/hpf)
[2022-08-11] MEDS: Carvedilol 6.25 MG TAB PO SCH ×2 (08:59→17:34)
[2022-08-11] MEDS: Amlodipine 10 MG TAB PO SCH (08:59)
[2022-08-11] MEDS: Spironolactone 25 MG TAB PO SCH (08:59)
[2022-08-11] MEDS: Acyclovir 400 mg Tablet PO SCH ×2 (08:59→19:37)
[2022-08-11] MEDS: Fluconazole 100 MG TAB PO SCH (09:00)
[2022-08-11] MEDS: Furosemide 20 MG TAB PO SCH (09:00)
[2022-08-11] MEDS: Aspirin Chewable 81 MG TAB PO SCH (11:37)
[2022-08-11] MEDS ORDERED: Dronabinol 2.5 MG CAP PO SCH (12:15)
[2022-08-11] MEDS ORDERED: DASATINIB 70 MG PO SCH ×2 (18:00)
[2022-08-11] MEDS: Atorvastatin Calcium 40 MG TAB PO SCH (19:37)
[2022-08-12] MEDS: Cefepime 2 GM in Sodium Chloride 0.9% 100 ML IVPB SCH ×2 (00:24→07:57)
[2022-08-12 05:58] LABS: Hemoglobin 7.5 g/dL (14.0-18.0); Mean Corpuscular HGB CONC 33.7 g/dL (32.0-36.0); Mean Corpuscular Hemoglobin 28.5 pg (27.0-31.0); Mean Corpuscular Volume 84.8 fl (78.0-98.0); Mean Platelet Volume 7.6 fL (7.4-10.4); Platelet Count 84 10x3/uL (130-400); RBC Distribution Width 13.3 % (11.5-14.5); Red Blood Cell (RBC) Count 2.62 mill/uL (4.70-6.10); White Blood Cell (WBC) Count 6.1 10x3/uL (4.8-10.8)
[2022-08-12 06:15] LABS: Anion Gap 11 mmol/L (10-20); BUN (Urea Nitrogen) 17 mg/dL (8.4-25.7); Calc. Creatinine Clearance 74 mL/min (70-130); Calcium 8.3 mg/dL (7.8-10.44); Carbon Dioxide 27 mmol/L (23-31); Chloride 97 mmol/L (98-107); Estimated GFR 82; Glucose 106 mg/dL (80-115); Magnesium 1.8 mg/dL (1.6-2.6); Potassium 3.8 mmol/L (3.5-5.1); Sodium 131 mmol/L (136-145)
[2022-08-12 06:40] LABS: Band 5 % (5-11); Large Platelets SLIGHT; Lymphocytes 35 % (21-51); MDiff Complete? YES; Monocytes 43 % (0-10); Neutrophil 17 % (42-75); Ovalocytes SLIGHT = 2-5 cells (100X) (0-1/hpf); Platelet Morphology Comment Appears Decreased
[2022-08-12] MEDS ORDERED: Dronabinol 2.5 MG CAP PO SCH (07:30)
[2022-08-12] MEDS: Aspirin Chewable 81 MG TAB PO SCH (07:55)
[2022-08-12] MEDS: Acyclovir 400 mg Tablet PO SCH (07:55)
[2022-08-12] MEDS: Fluconazole 100 MG TAB PO SCH (07:56)
[2022-08-12] MEDS: Furosemide 20 MG TAB PO SCH ×2 (07:56→08:00)
[2022-08-12] MEDS: Carvedilol 6.25 MG TAB PO SCH (07:56)
[2022-08-12] MEDS: Amlodipine 10 MG TAB PO SCH (07:57)
[2022-08-12] MEDS: Spironolactone 25 MG TAB PO SCH (07:57)
[2022-08-12 08:15] VITALS: BP 108/70; TEMP 98.5
[2022-08-12] MEDS: traMADol HCl 50 MG TAB PO PRN (08:35)
[2022-08-12] MEDS ORDERED: DASATINIB 70 MG PO SCH (09:00)
== END 2022-08-12 14:05 | disposition home or self-care (01) | DRG 809 ==
LOC: ERS 07:35 → SUATTDRO 07:35 → MSONC 09:22
PROVIDERS: ADMIT Family Medicine; ATTEND Family Medicine
PROC: 30233N1 Transfusion of Nonautologous Red Blood Cells into Peripheral Vein, Percutaneous Approach (ICD-10-PCS; principal; 2022-08-10)
DX: D61.810 Antineoplastic chemotherapy induced pancytopenia (principal); C91.00 Acute lymphoblastic leukemia not having achieved remission; E87.1 Hypo-osmolality and hyponatremia; Z20.822 Contact with and (suspected) exposure to COVID-19; R50.81 Fever presenting with conditions classified elsewhere; T45.1X5A Adverse effect of antineoplastic and immunosuppressive drugs, initial encounter; I10 Essential (primary) hypertension; M19.90 Unspecified osteoarthritis, unspecified site; F17.210 Nicotine dependence, cigarettes, uncomplicated; F12.10 Cannabis abuse, uncomplicated; I25.2 Old myocardial infarction; Z88.8 Allergy status to other drugs, medicaments and biological substances; Z79.899 Other long term (current) drug therapy; Z79.82 Long term (current) use of aspirin; Z98.890 Other specified postprocedural states; Z91.199 Patient's noncompliance with other medical treatment and regimen due to unspecified reason
CPT/HCPCS: 36415; 36416; 36430; 70450; 71045; 71260; 74177; 80048; 80053; 80076; 82550; 83036; 83605; 83735; 84443; 84484; 85025; 86850; 86900; 86901; 87040; 93005; 94640; J0692; J1447; J2405; J2765; J3490; J7620; P9016; Q0167; Q9967; U0002

== ENCOUNTER 2023-01-03 11:12 | Day surgery (SDC) | payer OTHER, MEDICAID ==
[2023-01-03] MEDS ORDERED: diphenhydrAMINE 25 MG CAP PO SCH (12:00)
[2023-01-03] MEDS ORDERED: Acetaminophen 500 MG TAB PO SCH (12:00)
[2023-01-03] MEDS ORDERED: diphenhydrAMINE 25 MG CAP ONE (12:12)
[2023-01-03] MEDS ORDERED: Acetaminophen 500 MG TAB ONE (12:12)
[2023-01-03 13:48] VITALS: BP 158/80; TEMP 98.5
== END 2023-01-03 14:06 | disposition home or self-care (01) ==
LOC: ONC/OP 11:12
PROVIDERS: ATTEND Internal Medicine Hematology & Oncology
DX: D64.9 Anemia, unspecified (principal); D69.6 Thrombocytopenia, unspecified
CPT/HCPCS: 36430; 86850; 86900; 86901; P9035

== ENCOUNTER 2023-01-07 09:24 | Day surgery (SDC) | payer OTHER, MEDICAID ==
[~2023-01-07 09:24] MED LIST changes: +Acetaminophen 500 MG TAB PO SCH; -Iopamidol-370 76% 500 ML 1 ML ONE; +diphenhydrAMINE 25 MG CAP PO SCH
[2023-01-07] MEDS ORDERED: diphenhydrAMINE 25 MG CAP ONE (11:12)
[2023-01-07] MEDS ORDERED: Acetaminophen 500 MG TAB ONE (11:12)
[2023-01-07 13:46] VITALS: BP 146/81; TEMP 98.2
== END 2023-01-07 13:45 | disposition home or self-care (01) ==
LOC: ONC/OP 09:24
PROVIDERS: ATTEND Internal Medicine Hematology & Oncology
DX: D64.9 Anemia, unspecified (principal); D69.6 Thrombocytopenia, unspecified
CPT/HCPCS: 36430; 86850; 86900; 86901; 86920; P9016

== ENCOUNTER 2023-11-18 16:35 | Observation (INO) | payer OTHER, MEDICAID ==
[~2023-11-18 16:35] MED LIST changes: -Acetaminophen 500 MG TAB PO SCH; +Iopamidol-370 76% 500 ML MDV (1 ML CHARGE) ONE; -diphenhydrAMINE 25 MG CAP PO SCH
[2023-11-18 17:19] LABS: Hemoglobin 11.8 g/dL (14.0-18.0); Mean Corpuscular HGB CONC 31.9 g/dL (32.0-36.0); Mean Corpuscular Hemoglobin 28.4 pg (27.0-31.0); Mean Corpuscular Volume 88.9 fL (78.0-98.0); Mean Platelet Volume 8.1 fL (7.4-10.4); Platelet Count 82 10x3/uL (130-400); RBC Distribution Width 14.2 % (11.5-14.5); Red Blood Cell (RBC) Count 4.16 mill/uL (4.70-6.10)
[2023-11-18 17:27] LABS: ALT (SGPT) 10 U/L (8-55); AST (SGOT) 29 U/L (5-34); Albumin 3.6 g/dL (3.4-4.8); Anion Gap 15 mmol/L (10-20); BUN (Urea Nitrogen) 14 mg/dL (8.4-25.7); Bilirubin, Total 0.4 mg/dL (0.2-1.2); Calc. Creatinine Clearance 0 mL/min (70-130); Carbon Dioxide 28 mmol/L (23-31); Chloride 98 mmol/L (98-107); Estimated GFR 64; Globulin 3.4 g/dL (2.4-3.5); Glucose 107 mg/dL (80-115); Potassium 3.2 mmol/L (3.5-5.1); Sodium 138 mmol/L (136-145)
[2023-11-18 17:29] LABS: Troponin I 0.011 ng/mL (< 0.028)
[2023-11-18] MEDS ORDERED: Morphine 4 MG/ML VIAL ONE (17:45)
[2023-11-18 17:47] LABS: Band 12 % (5-11); Eosinophils 3 % (0-10); Lymphocytes 29 % (21-51); Metamyelocyte 1 % (0-0); Monocytes 1 % (0-10); Myelocyte 1 % (0-0); Neutrophil 49 % (42-75); Nucleated RBC (Manual Ct) 1 % (0); Platelet Adequacy Comment Platelets Decreased; Poikilocytosis SLIGHT = 6-15 cells HPF (0-5); Polychromasia SLIGHT = 2-3 cells HPF (0-2); Reactive Lymphocytes 3 % (0-10)
[2023-11-18 18:00] LABS: Alkaline Phosphatase 70 U/L (40-110)
[2023-11-18 18:29] LABS: Lipase 10 U/L (8-78); Magnesium 1.6 mg/dL (1.6-2.6)
[2023-11-18 18:41] LABS: INR-International Normal Ratio 1.1; PTT 37.2 sec (22.9-36.1); Prothrombin Time 14.5 sec (12.0-14.7)
[2023-11-18] MEDS ORDERED: Nitroglycerin 0.4 MG TAB 1 EACH ONE (19:49)
[2023-11-18] MEDS ORDERED: Potassium Chloride 20 MEQ TAB ONE (19:49)
[2023-11-18] MEDS ORDERED: fentaNYL 50 mcg/mL 1 mL Vial ONE (19:50)
[2023-11-18] MEDS ORDERED: Acetaminophen 325 MG TAB PO PRN (19:59)
[2023-11-18] MEDS ORDERED: HYDROcodone/Acetaminophen 5/325 mg Tablet PO PRN (19:59)
[2023-11-18 20:39] LABS: Troponin I 0.014 ng/mL (< 0.028)
[2023-11-18 20:45] VITALS: BMI 19.1
[2023-11-18] MEDS: Atorvastatin Calcium 10 MG TAB PO SCH (20:59)
[2023-11-18] MEDS: Carvedilol 6.25 MG TAB PO SCH (21:01)
[2023-11-18] MEDS: Ketorolac Tromethamine 30 MG (1 mL) VIAL IVP PRN (21:01)
[2023-11-19 00:11] LABS: Troponin I 0.025 ng/mL (< 0.028)
[2023-11-19] MEDS: Magnesium 2 GM/50 ML(in water) 2 GM in Premix 1 BAG IVPB SCH (00:57)
[2023-11-19 04:34] LABS: Hematocrit 38.5 % (42.0-52.0); Hemoglobin 12.5 g/dL (14.0-18.0); Mean Corpuscular HGB CONC 32.5 g/dL (32.0-36.0); Mean Corpuscular Hemoglobin 28.7 pg (27.0-31.0); Mean Corpuscular Volume 88.3 fL (78.0-98.0); Mean Platelet Volume 9.1 fL (7.4-10.4); Platelet Count 74 10x3/uL (130-400); RBC Distribution Width 14.3 % (11.5-14.5); Red Blood Cell (RBC) Count 4.36 mill/uL (4.70-6.10)
[2023-11-19 04:48] LABS: Troponin I 0.013 ng/mL (< 0.028)
[2023-11-19 04:50] LABS: ALT (SGPT) 11 U/L (8-55); AST (SGOT) 40 U/L (5-34); Albumin 3.3 g/dL (3.4-4.8); Alkaline Phosphatase 70 U/L (40-110); Anion Gap 14 mmol/L (10-20); BUN (Urea Nitrogen) 14 mg/dL (8.4-25.7); Bilirubin, Total 0.5 mg/dL (0.2-1.2); Calc. Creatinine Clearance 65 mL/min (70-130); Calcium 9.1 mg/dL (7.8-10.44); Carbon Dioxide 29 mmol/L (23-31); Chloride 96 mmol/L (98-107); Estimated GFR 72; Globulin 3.9 g/dL (2.4-3.5); Glucose 108 mg/dL (80-115); Potassium 3.5 mmol/L (3.5-5.1); Protein, Total 7.2 g/dL (5.8-8.1); Sodium 135 mmol/L (136-145)
[2023-11-19 05:06] LABS: Band 12 % (5-11); Eosinophils 3 % (0-10); Hypochromia SLIGHT = 6-15 cells HPF (0-5); Lymphocytes 30 % (21-51); Metamyelocyte 2 % (0-0); Monocytes 6 % (0-10); Neutrophil 41 % (42-75); Nucleated RBC (Manual Ct) 2 % (0); Platelet Adequacy Comment Platelets Decreased; Polychromasia SLIGHT = 2-3 cells HPF (0-2); Reactive Lymphocytes 6 % (0-10)
[2023-11-19] MEDS ORDERED: DASATINIB 70 MG PO SCH (09:00)
[2023-11-19] MEDS: Enoxaparin 40 MG (0.4 mL) SYRINGE SC SCH (09:18)
[2023-11-19] MEDS: Amlodipine 10 MG TAB PO SCH (09:18)
[2023-11-19] MEDS: Pantoprazole 40 MG VIAL IVP SCH (09:19)
[2023-11-19 09:46] VITALS: BMI 19.1
[2023-11-19 12:11] VITALS: BP 132/82; TEMP 98.5
[2023-11-19 13:09] LABS: Troponin I 0.013 ng/mL (< 0.028)
== END 2023-11-19 16:09 | disposition home or self-care (01) ==
LOC: ERS 16:35 → 2SW 19:55
PROVIDERS: ADMIT Internal Medicine; ATTEND Family Medicine
PROC: B246ZZZ Ultrasonography of Right and Left Heart (ICD-10-PCS; principal; 2023-11-18)
DX: R07.2 Precordial pain (principal); C91.00 Acute lymphoblastic leukemia not having achieved remission; D64.9 Anemia, unspecified; D61.818 Other pancytopenia; E87.6 Hypokalemia; I25.10 Atherosclerotic heart disease of native coronary artery without angina pectoris; I16.0 Hypertensive urgency; E78.5 Hyperlipidemia, unspecified; I25.2 Old myocardial infarction; E11.65 Type 2 diabetes mellitus with hyperglycemia; Z88.8 Allergy status to other drugs, medicaments and biological substances; Z79.899 Other long term (current) drug therapy
CPT/HCPCS: 71045; 71275; 80053 ×2; 83690; 83735; 83880; 84484 ×4; 85025 ×2; 85610; 85730; 93005; 93306; 94760; 96374; 96375; 99285; C9113; J1650; J1885 ×2; J2270; J3010; J3475; 36415; 96372; 96376; G0378; Q9967

== ENCOUNTER 2023-11-26 09:34 | Observation (INO) | payer OTHER, MEDICAID ==
[2023-11-26 14:30] VITALS: BMI 20.1
[2023-11-28 13:06] VITALS: BP 151/82; TEMP 97.5
== END 2023-11-28 15:45 | disposition home or self-care (01) ==
LOC: ERS 09:34 → ERHOLD 11:13 → 2SW 14:10
PROVIDERS: ADMIT Family Medicine; ATTEND Family Medicine
DX: R07.89 Other chest pain (principal); R61 Generalized hyperhidrosis; C91.00 Acute lymphoblastic leukemia not having achieved remission; D69.6 Thrombocytopenia, unspecified; E87.1 Hypo-osmolality and hyponatremia; I25.10 Atherosclerotic heart disease of native coronary artery without angina pectoris; I25.2 Old myocardial infarction; E11.9 Type 2 diabetes mellitus without complications; I16.0 Hypertensive urgency; E78.5 Hyperlipidemia, unspecified; J44.9 Chronic obstructive pulmonary disease, unspecified; Z88.8 Allergy status to other drugs, medicaments and biological substances; Z98.890 Other specified postprocedural states; Z88.6 Allergy status to analgesic agent
CPT/HCPCS: 71045; 78452; 80048; 80053; 82962 ×3; 83690; 83880; 84484 ×3; 85025 ×2; 93005 ×2; 93017; 94760; 96374; 96376 ×2; 99285; A9502; G0378 ×4; J1815; J2270 ×2; J2272; J2785 ×2; 36415; 36416; 93010

== ENCOUNTER 2023-11-29 11:59 | Inpatient (IN) | payer OTHER, MEDICAID ==
[2023-11-29] MEDS ORDERED: Iopamidol-370 76% 500 ML MDV (1 ML CHARGE) ONE (12:19)
[2023-11-29] MEDS ORDERED: methylPREDNISolone Sod Succ/PF 125 MG/2 ML VIAL ONE (12:46)
[2023-11-29] MEDS ORDERED: Ipratropium/Albuterol 3 ML NEB ONE ×2 (12:46→13:14)
[2023-11-29] MEDS ORDERED: Cefepime 2 GM VIAL ONE (13:23)
[2023-11-29] MEDS ORDERED: Sodium Chloride 0.9% 100 ML ONE (13:23)
[2023-11-29 13:29] LABS: Hematocrit 31.7 % (42.0-52.0); Hemoglobin 10.5 g/dL (14.0-18.0); Mean Corpuscular HGB CONC 33.1 g/dL (32.0-36.0); Mean Corpuscular Hemoglobin 28.5 pg (27.0-31.0); Mean Corpuscular Volume 86.1 fL (78.0-98.0); Platelet Count 6 10x3/uL (130-400); RBC Distribution Width 14.3 % (11.5-14.5); Red Blood Cell (RBC) Count 3.68 mill/uL (4.70-6.10)
[2023-11-29 13:36] LABS: INR-International Normal Ratio 1.6; Prothrombin Time 18.9 sec (12.0-14.7)
[2023-11-29 13:38] LABS: ALT (SGPT) 43 U/L (8-55); AST (SGOT) 612 U/L (5-34); Albumin 3.2 g/dL (3.4-4.8); Alkaline Phosphatase 339 U/L (40-110); Anion Gap 21 mmol/L (10-20); BUN (Urea Nitrogen) 36 mg/dL (8.4-25.7); Bilirubin, Total 1.3 mg/dL (0.2-1.2); Calc. Creatinine Clearance 0 mL/min (70-130); Calcium 9.2 mg/dL (7.8-10.44); Carbon Dioxide 19 mmol/L (23-31); Chloride 94 mmol/L (98-107); Estimated GFR 45; Globulin 4.4 g/dL (2.4-3.5); Glucose 113 mg/dL (80-115); Protein, Total 7.6 g/dL (5.8-8.1); Sodium 130 mmol/L (136-145)
[2023-11-29 14:02] LABS: Band 8 % (5-11); Blast 29 % (0-0); Dohle Bodies SLIGHT; Lymphocytes 42 % (21-51); Myelocyte 2 % (0-0); Neutrophil 17 % (42-75); Nucleated RBC (Manual Ct) 6 % (0); Ovalocytes SLIGHT = 2-5 cells HPF (0-1); Platelet Adequacy Comment Significant Decrease; Polychromasia SLIGHT = 2-3 cells HPF (0-2); Reactive Lymphocytes 3 % (0-10); Toxic Granulation SLIGHT
[2023-11-29 14:08] LABS: Troponin I 0.061 ng/mL (< 0.028)
[2023-11-29] MEDS ORDERED: Magnesium 2 GM/50 ML BAG (IN WATER) ONE (15:00)
[2023-11-29 16:48] LABS: Lactic Acid 1.2 mmol/L (0.5-2.2)
[2023-11-29] MEDS ORDERED: Senokot S 8.6-50 MG TAB PO PRN (18:01)
[2023-11-29] MEDS ORDERED: Ondansetron PF 4 MG/2 ML Vial IVP PRN (18:01)
[2023-11-29] MEDS ORDERED: Acetaminophen 650 MG Suppository PR PRN (18:01)
[2023-11-29] MEDS ORDERED: Ondansetron ODT 4 MG TAB PO PRN (18:01)
[2023-11-29] MEDS ORDERED: Dextrose 5% in Water 1,000 ML IV PRN (18:08)
[2023-11-29] MEDS ORDERED: Ipratropium Bromide 2.5 ml Neb NEB PRN (18:08)
[2023-11-29] MEDS ORDERED: Dextrose 50% Abboject 50 ML SYRINGE SLOW IVP PRN (18:08)
[2023-11-29] MEDS ORDERED: Glucagon 1 MG/ML KIT IM PRN (18:08)
[2023-11-29] MEDS ORDERED: GUAIFENESIN SF SOLN 200 MG/10 ML UDCUP PO PRN (18:09)
[2023-11-29] MEDS ORDERED: Insulin Lispro 100 UNIT/ML 10 ML VIAL SC PRN ×2 (18:25)
[2023-11-29 19:13] LABS: Troponin I 0.046 ng/mL (< 0.028)
[2023-11-29 20:43] LABS: Platelet Count 15 10x3/uL (130-400)
[2023-11-29 20:51] VITALS: BMI 18.9
[2023-11-29] MEDS: Ipratropium/Albuterol 3 ML NEB NEB SCH (20:54)
[2023-11-29 21:02] LABS: Troponin I 0.049 ng/mL (< 0.028)
[2023-11-29] MEDS: Vancomycin (BATCH) 1.5 GM in Premix 1 BAG IVPB SCH (22:21)
[2023-11-29] MEDS: Vancomycin 1 GM in Premix 1 BAG IVPB SCH (22:22)
[2023-11-29] MEDS: Sodium Chloride 0.9% 1,000 ML IV SCH (22:41)
[2023-11-29] MEDS: Acetaminophen 325 MG TAB PO PRN (22:41)
[2023-11-29] MEDS: Famotidine 20 MG TAB PO SCH (22:41)
[2023-11-29] MEDS: Vancomycin HCl 500 MG in Sodium Chloride 0.9% 100 ML IVPB SCH (22:42)
[2023-11-30] MEDS: Cefepime 2 GM in Sodium Chloride 0.9% 100 ML IVPB SCH (01:42)
[2023-11-30 04:56] LABS: Hematocrit 25.5 % (42.0-52.0); Hemoglobin 8.5 g/dL (14.0-18.0); Mean Corpuscular HGB CONC 33.3 g/dL (32.0-36.0); Mean Corpuscular Volume 83.9 fL (78.0-98.0); Mean Platelet Volume 9.8 fL (7.4-10.4); Platelet Count 6 10x3/uL (130-400); RBC Distribution Width 14.4 % (11.5-14.5); Red Blood Cell (RBC) Count 3.04 mill/uL (4.70-6.10)
[2023-11-30 05:31] LABS: Band 4 % (5-11); Lymphocytes 35 % (21-51); Metamyelocyte 2 % (0-0); Monocytes 3 % (0-10); Neutrophil 31 % (42-75); Nucleated RBC (Manual Ct) 3 % (0); Platelet Adequacy Comment Significant Decrease; RBC Morphology Within Normal Limits
[2023-11-30 05:43] LABS: ALT (SGPT) 42 U/L (8-55); AST (SGOT) 519 U/L (5-34); Albumin 2.7 g/dL (3.4-4.8); Alkaline Phosphatase 339 U/L (40-110); Anion Gap 19 mmol/L (10-20); BUN (Urea Nitrogen) 59 mg/dL (8.4-25.7); Calc. Creatinine Clearance 26 mL/min (70-130); Carbon Dioxide 19 mmol/L (23-31); Chloride 96 mmol/L (98-107); Estimated GFR 25; Globulin 3.8 g/dL (2.4-3.5); Glucose 121 mg/dL (80-115); Potassium 4.1 mmol/L (3.5-5.1); Protein, Total 6.5 g/dL (5.8-8.1); Sodium 130 mmol/L (136-145)
[2023-11-30] MEDS: Pantoprazole DR 40 MG TAB PO SCH (09:25)
[2023-11-30] MEDS: methylPREDNISolone Sod Succ 40 MG VIAL IVP SCH (09:25)
[2023-11-30] MEDS: Lidocaine 4% Patch TD SCH (09:26)
[2023-11-30] MEDS: Vancomycin (BATCH) 1.25 GM in Premix 1 BAG IVPB SCH (09:53)
[2023-11-30] MEDS: Amlodipine 10 MG TAB PO SCH (09:59)
[2023-11-30] MEDS: Carvedilol 6.25 MG TAB PO SCH (10:00)
[2023-11-30] MEDS: hydrALAZINE 25 MG TAB PO SCH ×2 (10:00→14:36)
[2023-11-30 13:09] VITALS: TEMP 98.5
[2023-11-30] MEDS ORDERED: Vancomycin Dose by Levels Sliding Scale (Wt 71-99) FS SCH (13:45)
[2023-11-30] MEDS: Cefepime 1 GM in Sodium Chloride 0.9% 100 ML IVPB SCH (14:36)
[2023-11-30 15:35] VITALS: BP 142/87
[2023-11-30] MEDS ORDERED: Transdermal Patch Removal TOP SCH (21:00)
[2023-11-30] MEDS ORDERED: Carvedilol 6.25 MG TAB PO SCH (21:00)
== END 2023-11-30 17:45 | disposition short-term general hospital (02) | DRG 189 ==
LOC: ERS 11:59 → ERHOLD 16:24 → MSONC 20:10
PROVIDERS: ADMIT Family Medicine; ATTEND Family Medicine
PROC: 30233R1 Transfusion of Nonautologous Platelets into Peripheral Vein, Percutaneous Approach (ICD-10-PCS; principal; 2023-11-29)
DX: J96.01 Acute respiratory failure with hypoxia (principal); C91.01 Acute lymphoblastic leukemia, in remission; D61.818 Other pancytopenia; N17.9 Acute kidney failure, unspecified; J43.9 Emphysema, unspecified; I10 Essential (primary) hypertension; I25.2 Old myocardial infarction; I25.10 Atherosclerotic heart disease of native coronary artery without angina pectoris; E78.5 Hyperlipidemia, unspecified; E11.9 Type 2 diabetes mellitus without complications; I95.9 Hypotension, unspecified; Z88.8 Allergy status to other drugs, medicaments and biological substances; Z79.899 Other long term (current) drug therapy
CPT/HCPCS: 36415; 36416; 36430; 71045; 71260; 74177; 78452; 80048; 80053; 83605; 83690; 83880; 84484; 85025; 85610; 85730; 86850; 86900; 86901; 87040; 87081; 93005; 93010; 93017; 94640; 94760; 96361; 96365; 96366; 96367; 96374; 96375; 96376; A9502; G0378; J0692; J1815; J2270; J2272; J2785; J2920; J2930; J3370; J3475; J3490; J7050; J7620; P9035; Q9967

== ENCOUNTER 2024-04-02 08:53 | Day surgery (SDC) | payer OTHER ==
[2024-04-02] MEDS ORDERED: Methotrexate Sodium/PF 12 MG in Sodium Chloride 0.9% 9.52 ML IT SCH (10:00)
[2024-04-02] MEDS ORDERED: Hydrocortisone Sod Succ/PF 100 mg/2 ml Vial FS SCH (10:00)
[2024-04-02] MEDS ORDERED: Methotrexate Sodium/PF 12 MG in Sodium Chloride 0.9% 10 ML IT SCH (10:00)
[2024-04-02] MEDS ORDERED: Sodium Bicarbonate 2.5 MEQ/5 ML SDV ONE (11:00)
[2024-04-02] MEDS: FLU (Fluad Triv) TS24-25 (65UP)/MF59C/PF 45 MCG/0.5 ML Syringe IM ONE (13:13)
[2024-04-02 14:26] LABS: CSF Source CSF; Clarity Clear (Clear); Tube # 4
== END 2024-04-02 13:35 | disposition home or self-care (01) ==
LOC: RAD 08:53
PROVIDERS: ATTEND Internal Medicine Hematology & Oncology
PROC: 009U3ZX Drainage of Spinal Canal, Percutaneous Approach, Diagnostic (ICD-10-PCS; principal; 2024-04-02)
DX: C91.00 Acute lymphoblastic leukemia not having achieved remission (principal); I10 Essential (primary) hypertension; E78.00 Pure hypercholesterolemia, unspecified; B19.20 Unspecified viral hepatitis C without hepatic coma
CPT/HCPCS: 62270; 84157; 89051; 90653; J1720; J9250; 88112; 88184

== ENCOUNTER 2024-04-04 11:19 | Observation (INO) | payer OTHER ==
[2024-04-04 12:42] LABS: Hematocrit 19.2 % (42.0-52.0); Hemoglobin 5.7 g/dL (14.0-18.0); Mean Corpuscular HGB CONC 29.7 g/dL (32.0-36.0); Mean Corpuscular Hemoglobin 26.5 pg (27.0-31.0); Mean Corpuscular Volume 89.3 fL (78.0-98.0); Platelet Count 5 10x3/uL (130-400); Red Blood Cell (RBC) Count 2.15 mill/uL (4.70-6.10)
[2024-04-04 13:01] LABS: Troponin I Less than 0.010 ng/mL (< 0.028)
[2024-04-04 13:15] LABS: ALT (SGPT) 15 U/L (8-55); AST (SGOT) 13 U/L (5-34); Albumin 2.6 g/dL (3.4-4.8); Alkaline Phosphatase 62 U/L (40-110); Anion Gap 14 mmol/L (10-20); BUN (Urea Nitrogen) 18 mg/dL (8.4-25.7); Bilirubin, Total 0.4 mg/dL (0.2-1.2); Calc. Creatinine Clearance 0 mL/min (70-130); Calcium 7.7 mg/dL (7.8-10.44); Carbon Dioxide 19 mmol/L (23-31); Chloride 113 mmol/L (98-107); Estimated GFR 78; Globulin 2.7 g/dL (2.4-3.5); Glucose 108 mg/dL (80-115); Potassium 4.2 mmol/L (3.5-5.1); Protein, Total 5.3 g/dL (5.8-8.1); Sodium 142 mmol/L (136-145)
[2024-04-04 13:33] LABS: Anisocytosis SLIGHT = 6-15 cells HPF (0-5); Eosinophils 13 % (0-10); Hypochromia SLIGHT = 6-15 cells HPF (0-5); Large Platelets 1.9 % (0-5); Lymphocytes 87 % (21-51); Macrocytosis SLIGHT = 6-15 cells HPF (0-5); Nucleated RBC (Manual Ct) 9 % (0); Platelet Adequacy Comment Platelets Decreased; Polychromasia SLIGHT = 2-3 cells HPF (0-2); Reflex for Review?? YES; Smudge Cells 20.4 %; Tear Drops SLIGHT = 2-5 cells HPF (0-1)
[2024-04-04 15:20] LABS: INR-International Normal Ratio 1.1; PTT 41.1 sec (22.9-36.1); Prothrombin Time 14.7 sec (12.0-14.7)
[2024-04-04 18:36] LABS: Bacteria/HPF None Seen HPF (None Seen); Bilirubin Negative (Negative); Blood, Urine Negative (Negative); CAUTI Indications for Culture Alt mental st,lethar; Clarity Clear (Clear); Glucose, Urine (Dipstick) Normal (Negative); Ketone, Urine Negative (Negative); Leukocyte Negative Leu/uL (Negative); Nitrite Negative (Negative); Protein, Urine (Dipstick) 20 mg/dL (Neg-Trace); RBC/HPF 0-3 HPF (0-3); Specific Gravity, Urine 1.015 (1.002-1.036); Squamous Epithelial 0-3 HPF (0-3); Urobilinogen Normal mg/dL (Less than 2); WBC/HPF 0-3 HPF (0-3)
[2024-04-04 18:40] LABS: Urine Culture Reflex No No
[2024-04-04] MEDS ORDERED: Ondansetron PF 4 MG/2 ML Vial IVP PRN (19:19)
[2024-04-04] MEDS ORDERED: Ondansetron ODT 4 MG TAB PO PRN (19:19)
[2024-04-04] MEDS ORDERED: Acetaminophen 325 MG TAB PO PRN (19:19)
[2024-04-04 19:59] VITALS: BMI 19.4
[2024-04-05] MEDS ORDERED: Ondansetron ODT 4 MG TAB PO PRN (00:29)
[2024-04-05] MEDS ORDERED: Senokot S 8.6-50 MG TAB PO PRN (00:29)
[2024-04-05] MEDS: traMADol HCl 50 MG TAB PO PRN (00:43)
[2024-04-05 05:09] LABS: Hematocrit 22.3 % (42.0-52.0); Hemoglobin 6.9 g/dL (14.0-18.0); Mean Corpuscular HGB CONC 30.9 g/dL (32.0-36.0); Mean Corpuscular Hemoglobin 26.6 pg (27.0-31.0); Mean Corpuscular Volume 86.1 fL (78.0-98.0); Mean Platelet Volume 8.6 fL (7.4-10.4); Platelet Count 48 10x3/uL (130-400); RBC Distribution Width 16.7 % (11.5-14.5); Red Blood Cell (RBC) Count 2.59 mill/uL (4.70-6.10)
[2024-04-05 05:18] LABS: ALT (SGPT) 13 U/L (8-55); AST (SGOT) 7 U/L (5-34); Albumin 2.7 g/dL (3.4-4.8); Alkaline Phosphatase 66 U/L (40-110); Anion Gap 14 mmol/L (10-20); BUN (Urea Nitrogen) 17 mg/dL (8.4-25.7); Bilirubin, Total 0.4 mg/dL (0.2-1.2); Calc. Creatinine Clearance 81 mL/min (70-130); Chloride 110 mmol/L (98-107); Estimated GFR 89; Globulin 2.7 g/dL (2.4-3.5); Glucose 116 mg/dL (80-115); Potassium 3.7 mmol/L (3.5-5.1); Protein, Total 5.4 g/dL (5.8-8.1); Sodium 139 mmol/L (136-145)
[2024-04-05 05:32] LABS: Carbon Dioxide 19 mmol/L (23-31)
[2024-04-05] MEDS: Pyridostigmine Bromide IR 60 MG TAB PO SCH (05:40)
[2024-04-05 06:06] LABS: Eosinophils 11 % (0-10); Large Platelets 2.4 % (0-5); Lymphocytes 87 % (21-51); Monocytes 2 % (0-10); Platelet Adequacy Comment Platelets Decreased; Smudge Cells 18.1 %; Tear Drops SLIGHT = 2-5 cells HPF (0-1)
[2024-04-05] MEDS: Losartan 25 MG TAB PO SCH (08:39)
[2024-04-05] MEDS: Amlodipine 10 MG TAB PO SCH (08:39)
[2024-04-05] MEDS: Pantoprazole DR 40 MG TAB PO SCH (08:39)
[2024-04-05] MEDS: Atorvastatin Calcium 10 MG TAB PO SCH (08:39)
[2024-04-05] MEDS: Carvedilol 6.25 MG TAB PO SCH (08:40)
[2024-04-05] MEDS: Aspirin 81 mg Enteric Coated Tablet PO SCH (08:40)
[2024-04-05] MEDS: Gabapentin 100 MG CAP PO SCH (08:40)
[2024-04-05] MEDS: Acyclovir 400 mg Tablet PO SCH (08:40)
[2024-04-05] MEDS: Fluconazole 100 MG TAB PO SCH (08:41)
[2024-04-05 12:24] VITALS: BP 165/80; TEMP 98.3
== END 2024-04-05 15:02 | disposition home or self-care (01) ==
LOC: ERS 11:19 → OBS 17:11
PROVIDERS: ADMIT Hospitalist; ATTEND Internal Medicine
DX: D61.818 Other pancytopenia (principal); C91.00 Acute lymphoblastic leukemia not having achieved remission; I10 Essential (primary) hypertension; I25.10 Atherosclerotic heart disease of native coronary artery without angina pectoris; I25.2 Old myocardial infarction; E78.5 Hyperlipidemia, unspecified; M48.061 Spinal stenosis, lumbar region without neurogenic claudication; F12.20 Cannabis dependence, uncomplicated; Z87.891 Personal history of nicotine dependence; Z88.8 Allergy status to other drugs, medicaments and biological substances; Z88.6 Allergy status to analgesic agent; Z79.82 Long term (current) use of aspirin; Z79.2 Long term (current) use of antibiotics; Z79.899 Other long term (current) drug therapy
CPT/HCPCS: 36430 ×2; 72100; 72148; 80053 ×2; 81001; 83605; 84484; 85025 ×2; 85610; 85730; 86850; 86900; 86901; 86920; 93005; 99285; G0378 ×3; P9016 ×2; P9035; 36415; 85060

== ENCOUNTER 2024-04-09 11:08 | Day surgery (SDC) | payer OTHER ==
[2024-04-09] MEDS ORDERED: Acetaminophen 500 MG TAB ONE (12:30)
[2024-04-09] MEDS ORDERED: diphenhydrAMINE 25 MG CAP ONE (12:30)
[2024-04-09] MEDS: Acetaminophen 500 MG TAB PO SCH (12:31)
[2024-04-09] MEDS: diphenhydrAMINE 25 MG CAP PO SCH (12:31)
[2024-04-09] MEDS ORDERED: cloNIDine 0.1 MG TAB ONE (13:25)
[2024-04-09] MEDS: cloNIDine 0.1 MG TAB PO SCH (13:28)
[2024-04-09 14:27] VITALS: TEMP 98.2
[2024-04-09] MEDS ORDERED: cloNIDine 0.1 MG TAB PO SCH (14:27)
[2024-04-09] MEDS: cloNIDine 0.1 MG TAB ONE (14:34)
[2024-04-09 15:34] VITALS: BP 207/101
== END 2024-04-09 15:36 | disposition home or self-care (01) ==
LOC: ONC/OP 11:08
PROVIDERS: ATTEND Internal Medicine Hematology & Oncology
DX: D64.9 Anemia, unspecified (principal); D69.6 Thrombocytopenia, unspecified; Z88.8 Allergy status to other drugs, medicaments and biological substances; Z88.6 Allergy status to analgesic agent
CPT/HCPCS: 36430; 86850; 86900; 86901; G0463; P9035; 99211

== ENCOUNTER 2024-04-13 12:09 | Day surgery (SDC) | payer OTHER ==
[2024-04-13] MEDS ORDERED: diphenhydrAMINE 25 MG CAP ONE (12:48)
[2024-04-13] MEDS ORDERED: Acetaminophen 500 MG TAB ONE (12:48)
[2024-04-13] MEDS: Acetaminophen 500 MG TAB PO SCH (12:51)
[2024-04-13] MEDS: diphenhydrAMINE 25 MG CAP PO SCH (12:51)
[2024-04-13] MEDS ORDERED: cloNIDine 0.1 MG TAB ONE (15:49)
[2024-04-13] MEDS: cloNIDine 0.1 MG TAB PO SCH (15:55)
[2024-04-13 16:30] VITALS: TEMP 98.3
[2024-04-13 16:31] VITALS: BP 184/100
== END 2024-04-13 16:31 | disposition home or self-care (01) ==
LOC: ONC/OP 12:09
PROVIDERS: ATTEND Internal Medicine Hematology & Oncology
DX: D64.9 Anemia, unspecified (principal); D69.6 Thrombocytopenia, unspecified
CPT/HCPCS: 36430; 86850; 86900; 86901; 86920; P9016; P9035

== ENCOUNTER 2024-05-29 09:59 | Day surgery (SDC) | payer OTHER ==
[2024-05-29] MEDS ORDERED: Acetaminophen 500 MG TAB ONE (10:58)
[2024-05-29 11:01] VITALS: TEMP 97.9
[2024-05-29] MEDS: Acetaminophen 500 MG TAB PO SCH (11:09)
[2024-05-29] MEDS ORDERED: diphenhydrAMINE 25 MG CAP PO SCH (11:15)
[2024-05-29 12:19] VITALS: BP 92/54
== END 2024-05-29 11:35 | disposition short-term general hospital (02) ==
LOC: ONC/OP 09:59
PROVIDERS: ATTEND Internal Medicine Hematology & Oncology
DX: D64.9 Anemia, unspecified (principal); D69.6 Thrombocytopenia, unspecified
CPT/HCPCS: 36430; 86850 ×2; 86900; 86901; 86920; G0463; P9035; 99213

== ENCOUNTER 2024-05-29 11:46 | Inpatient (IN) | payer OTHER, MEDICAID ==
[2024-05-29] MEDS ORDERED: Rocuronium Bromide 10 MG/ML (10ML VIAL) ONE (11:55)
[2024-05-29 12:25] LABS: Actual Bicarbonate (HCO3a) 23.1 mEq/L (22-28); Analyzer IN Cardio ER; CO2 Tension 79.2 mmHg (35.0-45.0); Calcium, Ionized (arterial) 1.31 mmol/L (1.12-1.30); Carboxyhemoglobin (COHb) 1.3 gm% (0.0-3.0); Hematocrit-ABG 24 % (42.0-52.0); Hemoglobin (Hb) 8.2 g/dL (14.0-18.0); Potassium - ABG Lab 2.97 mmol/L (3.70-5.30); Puncture Site Right Radial artery; pH, Arterial 7.082 (7.35-7.45)
[2024-05-29 12:27] LABS: INR-International Normal Ratio 1.1; PTT 32.5 sec (22.9-36.1); Prothrombin Time 14.5 sec (12.0-14.7)
[2024-05-29] MEDS ORDERED: Fentanyl CADD 100 ML IV SCH (12:30)
[2024-05-29 12:40] LABS: #Basophils Less than 0.03 10x3/uL (0.0-0.2); #Eosinophils Less than 0.03 10x3/uL (0.0-0.7); %Eosinophils 0.7 % (0.0-10.0); %Lymphocytes 92.8 % (21.0-51.0); %Monocytes 2.6 % (0.0-10.0); %Neutrophils 3.9 % (42.0-75.0); Hematocrit 29.1 % (42.0-52.0); Hemoglobin 8.8 g/dL (14.0-18.0); Mean Corpuscular HGB CONC 30.2 g/dL (32.0-36.0); Mean Corpuscular Volume 89.3 fL (78.0-98.0); Platelet Count 16 10x3/uL (130-400); RBC Distribution Width 19.6 % (11.5-14.5); Red Blood Cell (RBC) Count 3.26 mill/uL (4.70-6.10)
[2024-05-29 12:45] LABS: ALT (SGPT) 12 U/L (8-55); AST (SGOT) 11 U/L (5-34); Albumin 3.1 g/dL (3.4-4.8); Alkaline Phosphatase 75 U/L (40-110); Anion Gap 18 mmol/L (10-20); BUN (Urea Nitrogen) 18 mg/dL (8.4-25.7); Bilirubin, Total 0.4 mg/dL (0.2-1.2); Calc. Creatinine Clearance 0 mL/min (70-130); Calcium 8.9 mg/dL (7.8-10.44); Carbon Dioxide 19 mmol/L (23-31); Chloride 112 mmol/L (98-107); Estimated GFR 76; Globulin 3.5 g/dL (2.4-3.5); Glucose 160 mg/dL (80-115); Potassium 3.9 mmol/L (3.5-5.1); Protein, Total 6.6 g/dL (5.8-8.1); Sodium 145 mmol/L (136-145)
[2024-05-29 12:55] LABS: Troponin I 0.044 ng/mL (< 0.028)
[2024-05-29] MEDS ORDERED: hydrALAZINE 20 MG/ML VIAL ONE (13:56)
[2024-05-29] MEDS ORDERED: Iopamidol-370 76% 500 ML MDV (1 ML CHARGE) ONE (14:03)
[2024-05-29] MEDS ORDERED: fentaNYL 50 mcg/mL 1 mL Vial ONE ×3 (14:16→14:28)
[2024-05-29] MEDS ORDERED: Bisacodyl 5 MG TAB PO PRN (14:31)
[2024-05-29] MEDS ORDERED: Electrolyte Replacement Protocol 1 EACH IVPB SCH (14:31)
[2024-05-29] MEDS ORDERED: Acetaminophen 325 MG TAB PO PRN (14:31)
[2024-05-29] MEDS ORDERED: Ondansetron PF 4 MG/2 ML Vial IVP PRN (14:31)
[2024-05-29 15:07] LABS: Bacteria/HPF None Seen HPF (None Seen); Bilirubin Negative (Negative); Blood, Urine Negative (Negative); CAUTI Indications for Culture Alt mental st,lethar; Clarity Clear (Clear); Glucose, Urine (Dipstick) Normal (Negative); Ketone, Urine Negative (Negative); Leukocyte Negative Leu/uL (Negative); Nitrite Negative (Negative); Protein, Urine (Dipstick) 50 mg/dL (Neg-Trace); Specific Gravity, Urine 1.048 (1.002-1.036); Squamous Epithelial 0-3 HPF (0-3); Urobilinogen Normal mg/dL (Less than 2); pH, Urine 5.5 (5.0-9.0)
[2024-05-29 15:09] LABS: Urine Culture Reflex No No
[2024-05-29 15:56] LABS: Actual Bicarbonate (HCO3v) 23.8 mEq/L (22-28); Base Excess -1.4 mEq/L (-2.0 to +3.0); Calcium, Ionized (venous) 1.06 mmol/L (1.16-1.32); Chloride (VBG) 109 mmol/L (98-106); Hematocrit-VBG 28 % (42.0-52.0); Hemoglobin (Hb) 9.4 g/dL (12.6-17.4); Potassium (VBG) 3.43 mmol/L (3.70-5.30); Sodium 144 mmol/L (133-146); pH (venous) 7.371 (7.32-7.43)
[2024-05-29 16:05] VITALS: BMI 21.6
[2024-05-29] MEDS: Dexmedetomidine In 0.9 % NaCl 100 ML IV SCH (16:09)
[2024-05-29 16:10] LABS: Bacteria/HPF None Seen HPF (None Seen); Bilirubin Negative (Negative); Blood, Urine Negative (Negative); CAUTI Indications for Culture Alt mental st,lethar; Clarity Clear (Clear); Glucose, Urine (Dipstick) Normal (Negative); Ketone, Urine Negative (Negative); Leukocyte Negative Leu/uL (Negative); Nitrite Negative (Negative); Protein, Urine (Dipstick) 30 mg/dL (Neg-Trace); RBC/HPF 0-3 HPF (0-3); Squamous Epithelial 0-3 HPF (0-3); Urobilinogen Normal mg/dL (Less than 2)
[2024-05-29 16:11] LABS: Amphetamine Not Detected (NotDetected); Barbiturates Screen Not Detected (NotDetected); Benzodiazepine Screen Not Detected (NotDetected); Cocaine Metabolite Screen Not Detected (NotDetected); Methadone Not Detected (NotDetected); Methamphetamine Not Detected (NotDetected); Opiate Screen Not Detected (NotDetected); Oxycodone Screen Not Detected (NotDetected); Phencyclidine (PCP) Not Detected (NotDetected); THC/Cannabinoid Screen Detected (NotDetected); Tricyclic Screen Not Detected (NotDetected)
[2024-05-29 16:20] LABS: Lactic Acid 2.12 mmol/L (0.5-2.2)
[2024-05-29] MEDS ORDERED: Insulin Regular, Human 100 UNIT/ML 10 ML VIAL SC PRN (17:10)
[2024-05-29] MEDS ORDERED: Electrolyte Replacement Protocol 1 EACH FS SCH (17:15)
[2024-05-29] MEDS: Lactated Ringer's 1,000 ML IV SCH (17:53)
[2024-05-29] MEDS: Lactated Ringer's 500 ML IV SCH (18:05)
[2024-05-29] MEDS ORDERED: NOREPINEPHRINE 8 MG/250 ML-D5W 250 ML IVPB PRN (18:08)
[2024-05-29] MEDS: Hydrocortisone Sod Succ/PF 100 mg/2 ml Vial IVP SCH ×2 (18:25→23:36)
[2024-05-29] MEDS: Ipratropium/Albuterol 3 ML NEB NEB SCH (18:36)
[2024-05-29] MEDS: Budesonide 0.5 MG/2 ML NEB INH SCH (18:37)
[2024-05-29] MEDS: Magnesium 2 GM/50 ML(in water) 2 GM in Premix 1 BAG IVPB SCH (20:29)
[2024-05-29] MEDS: Famotidine/PF 20 mg/2ml Vial SLOW IVP SCH (20:30)
[2024-05-29] MEDS: Cefepime 2 GM in Sodium Chloride 0.9% 100 ML IVPB SCH (20:30)
[2024-05-30] MEDS: hydrALAZINE 20 MG/ML VIAL SLOW IVP PRN (01:47)
[2024-05-30 05:39] LABS: ALT (SGPT) 12 U/L (8-55); AST (SGOT) 9 U/L (5-34); Albumin 2.9 g/dL (3.4-4.8); Alkaline Phosphatase 71 U/L (40-110); Anion Gap 11 mmol/L (10-20); BUN (Urea Nitrogen) 22 mg/dL (8.4-25.7); Bilirubin, Total 0.2 mg/dL (0.2-1.2); Calc. Creatinine Clearance 97 mL/min (70-130); Calcium 8.4 mg/dL (7.8-10.44); Carbon Dioxide 24 mmol/L (23-31); Chloride 112 mmol/L (98-107); Estimated GFR 95; Glucose 147 mg/dL (80-115); Hematocrit 21.5 % (42.0-52.0); Hemoglobin 6.9 g/dL (14.0-18.0); Magnesium 2.2 mg/dL (1.6-2.6); Mean Corpuscular HGB CONC 32.1 g/dL (32.0-36.0); Mean Corpuscular Hemoglobin 27.4 pg (27.0-31.0); Mean Corpuscular Volume 85.3 fL (78.0-98.0); Platelet Count 6 10x3/uL (130-400); Potassium 4.3 mmol/L (3.5-5.1); Protein, Total 5.9 g/dL (5.8-8.1); RBC Distribution Width 19.2 % (11.5-14.5); Red Blood Cell (RBC) Count 2.52 mill/uL (4.70-6.10); Sodium 143 mmol/L (136-145)
[2024-05-30 06:56] LABS: Anisocytosis SLIGHT = 6-15 cells HPF (0-5); Band 1 % (5-11); Elliptocytes SLIGHT = 2-5 cells HPF (0-1); Eosinophils 1 % (0-10); Lymphocytes 48 % (21-51); Macrocytosis SLIGHT = 6-15 cells HPF (0-5); Monocytes 2 % (0-10); Neutrophil 47 % (42-75); Platelet Adequacy Comment Significant Decrease; Polychromasia SLIGHT = 2-3 cells HPF (0-2); Smudge Cells 3.2 %
[2024-05-30] MEDS: Cefepime 2 GM in Sodium Chloride 0.9% 100 ML IVPB SCH (08:39)
[2024-05-30] MEDS: traMADol HCl 50 MG TAB PO PRN (17:38)
[2024-05-30 17:46] LABS: Hematocrit 20.6 % (42.0-52.0); Hemoglobin 6.7 g/dL (14.0-18.0); Mean Corpuscular HGB CONC 32.5 g/dL (32.0-36.0); Mean Corpuscular Hemoglobin 27.3 pg (27.0-31.0); Mean Corpuscular Volume 84.1 fL (78.0-98.0); Platelet Count 47 10x3/uL (130-400); RBC Distribution Width 18.6 % (11.5-14.5); Red Blood Cell (RBC) Count 2.45 mill/uL (4.70-6.10)
[2024-05-30 18:04] LABS: Troponin I 0.053 ng/mL (< 0.028)
[2024-05-30 18:06] LABS: Anisocytosis SLIGHT = 6-15 cells HPF (0-5); Eosinophils 6 % (0-10); Lymphocytes 79 % (21-51); Macrocytosis SLIGHT = 6-15 cells HPF (0-5); Neutrophil 15 % (42-75); Platelet Adequacy Comment Platelets Decreased; Polychromasia SLIGHT = 2-3 cells HPF (0-2); Smudge Cells 8.1 %; Tear Drops SLIGHT = 2-5 cells HPF (0-1)
[2024-05-30] MEDS: Acyclovir 400 mg Tablet PO SCH (20:59)
[2024-05-30] MEDS: Carvedilol 6.25 MG TAB PO SCH (20:59)
[2024-05-30] MEDS ORDERED: Gabapentin 100 MG CAP PO SCH (21:00)
[2024-05-30] MEDS: Gabapentin 100 MG CAP PO SCH (21:01)
[2024-05-30] MEDS: Hydrocortisone Sod Succ/PF 100 mg/2 ml Vial IVP SCH (21:02)
[2024-05-31 04:57] LABS: Hematocrit 23.2 % (42.0-52.0); Hemoglobin 7.6 g/dL (14.0-18.0); Mean Corpuscular HGB CONC 32.8 g/dL (32.0-36.0); Mean Corpuscular Hemoglobin 27.2 pg (27.0-31.0); Mean Corpuscular Volume 83.2 fL (78.0-98.0); Mean Platelet Volume 10.8 fL (7.4-10.4); Platelet Count 40 10x3/uL (130-400); RBC Distribution Width 17.9 % (11.5-14.5); Red Blood Cell (RBC) Count 2.79 mill/uL (4.70-6.10)
[2024-05-31] MEDS: hydrALAZINE 20 MG/ML VIAL SLOW IVP SCH (05:01)
[2024-05-31 05:44] LABS: ALT (SGPT) 13 U/L (8-55); AST (SGOT) 10 U/L (5-34); Albumin 2.7 g/dL (3.4-4.8); Alkaline Phosphatase 63 U/L (40-110); Anion Gap 10 mmol/L (10-20); BUN (Urea Nitrogen) 19 mg/dL (8.4-25.7); Bilirubin, Total 0.6 mg/dL (0.2-1.2); Calc. Creatinine Clearance 103 mL/min (70-130); Calcium 7.8 mg/dL (7.8-10.44); Carbon Dioxide 27 mmol/L (23-31); Chloride 107 mmol/L (98-107); Estimated GFR 96; Globulin 2.9 g/dL (2.4-3.5); Glucose 113 mg/dL (80-115); Potassium 3.7 mmol/L (3.5-5.1); Protein, Total 5.6 g/dL (5.8-8.1); Sodium 140 mmol/L (136-145)
[2024-05-31 06:00] LABS: Band 1 % (5-11); Eosinophils 10 % (0-10); Lymphocytes 67 % (21-51); Monocytes 2 % (0-10); Neutrophil 20 % (42-75); Platelet Adequacy Comment Platelets Decreased; Tear Drops SLIGHT = 2-5 cells HPF (0-1)
[2024-05-31] MEDS ORDERED: Losartan 25 MG TAB PO SCH ×2 (09:00)
[2024-05-31] MEDS: Fluconazole 100 MG TAB PO SCH (09:23)
[2024-05-31] MEDS: Amlodipine 10 MG TAB PO SCH (09:24)
[2024-05-31] MEDS: Aspirin 81 mg Enteric Coated Tablet PO SCH (09:24)
[2024-05-31] MEDS: Atorvastatin Calcium 10 MG TAB PO SCH (09:24)
[2024-05-31] MEDS: Pantoprazole DR 40 MG TAB PO SCH (09:25)
[2024-05-31] MEDS: Losartan 25 MG TAB PO SCH (09:29)
[2024-05-31] MEDS: Labetalol HCl 100 MG/20 ML VIAL SLOW IVP PRN (12:02)
[2024-05-31] MEDS: hydrALAZINE 20 MG/ML VIAL SLOW IVP PRN (14:08)
[2024-05-31] MEDS: hydrALAZINE 25 MG TAB PO SCH (16:43)
[2024-06-01 07:21] LABS: ALT (SGPT) 11 U/L (8-55); AST (SGOT) 9 U/L (5-34); Albumin 2.6 g/dL (3.4-4.8); Alkaline Phosphatase 66 U/L (40-110); Anion Gap 12 mmol/L (10-20); BUN (Urea Nitrogen) 15 mg/dL (8.4-25.7); Bilirubin, Total 0.4 mg/dL (0.2-1.2); Calc. Creatinine Clearance 98 mL/min (70-130); Calcium 7.8 mg/dL (7.8-10.44); Carbon Dioxide 26 mmol/L (23-31); Chloride 108 mmol/L (98-107); Estimated GFR 94; Globulin 2.7 g/dL (2.4-3.5); Glucose 97 mg/dL (80-115); Potassium 3.3 mmol/L (3.5-5.1); Protein, Total 5.3 g/dL (5.8-8.1); Sodium 143 mmol/L (136-145)
[2024-06-01 07:29] LABS: Hemoglobin 7.8 g/dL (14.0-18.0); Mean Corpuscular HGB CONC 32.5 g/dL (32.0-36.0); Mean Corpuscular Hemoglobin 27.6 pg (27.0-31.0); Mean Corpuscular Volume 84.8 fL (78.0-98.0); Platelet Count 32 10x3/uL (130-400); RBC Distribution Width 18.5 % (11.5-14.5); Red Blood Cell (RBC) Count 2.83 mill/uL (4.70-6.10)
[2024-06-01 08:04] LABS: Eosinophils 7 % (0-10); Lymphocytes 85 % (21-51); Monocytes 1 % (0-10); Neutrophil 5 % (42-75); Nucleated RBC (Manual Ct) 1 % (0); Platelet Adequacy Comment Significant Decrease; Polychromasia MODERATE = 3-4 cells HPF (0-2); Reactive Lymphocytes 1 % (0-10); Schistocytes SLIGHT = 2-5 cells HPF (0-1); Tear Drops SLIGHT = 2-5 cells HPF (0-1)
[2024-06-01] MEDS: Potassium Chloride 20 MEQ TAB PO SCH (08:40)
[2024-06-01 12:59] VITALS: BP 167/92; TEMP 98.9
== END 2024-06-01 12:08 | disposition home or self-care (01) | DRG 208 ==
LOC: ERS 11:46 → CCU 14:50 → MSONC 05-31 16:11
PROVIDERS: ADMIT Internal Medicine; ATTEND Internal Medicine
PROC: 5A1935Z Respiratory Ventilation, Less than 24 Consecutive Hours (ICD-10-PCS; 2024-05-29)
PROC: 4A033R1 Measurement of Arterial Saturation, Peripheral, Percutaneous Approach (ICD-10-PCS; 2024-05-29)
PROC: 3E033XZ Introduction of Vasopressor into Peripheral Vein, Percutaneous Approach (ICD-10-PCS; 2024-05-29)
PROC: 30233N1 Transfusion of Nonautologous Red Blood Cells into Peripheral Vein, Percutaneous Approach (ICD-10-PCS; principal; 2024-05-30)
PROC: 6A550Z2 Pheresis of Platelets, Single (ICD-10-PCS; 2024-05-30)
DX: J96.01 Acute respiratory failure with hypoxia (principal); D61.810 Antineoplastic chemotherapy induced pancytopenia; G93.41 Metabolic encephalopathy; E87.20 Acidosis, unspecified; C92.00 Acute myeloblastic leukemia, not having achieved remission; E87.1 Hypo-osmolality and hyponatremia; I10 Essential (primary) hypertension; Z88.8 Allergy status to other drugs, medicaments and biological substances; Z79.82 Long term (current) use of aspirin; Z79.899 Other long term (current) drug therapy; I25.10 Atherosclerotic heart disease of native coronary artery without angina pectoris; I25.2 Old myocardial infarction; E11.9 Type 2 diabetes mellitus without complications; E78.5 Hyperlipidemia, unspecified; J44.9 Chronic obstructive pulmonary disease, unspecified; Z98.890 Other specified postprocedural states; Z87.891 Personal history of nicotine dependence; M19.90 Unspecified osteoarthritis, unspecified site; G62.9 Polyneuropathy, unspecified; I16.0 Hypertensive urgency; D69.6 Thrombocytopenia, unspecified
CPT/HCPCS: 36415; 36416; 36430; 36600; 43752; 51703; 70450; 71045; 71275; 80053; 80306; 81001; 82805; 83605; 83735; 83880; 84145; 84484; 85025; 85610; 85730; 86850; 86900; 86901; 87040; 93005; 93306; 94002; 94003; 94640; 96360; 96365; 96375; 99292; J0360; J0692; J1642; J1720; J3010; J3475; J3490; J7120; J7620; J7626; P9016; P9035; Q9967

== ENCOUNTER 2025-05-26 20:23 | Emergency (ER) | payer OTHER ==
[2025-05-26 21:07] LABS: Actual Bicarbonate (HCO3v) 27.7 mEq/L (22-28); Base Excess 0.6 mEq/L (-2.0 to +3.0); Calcium, Ionized (venous) 1.12 mmol/L (1.16-1.32); Chloride (VBG) 105 mmol/L (98-106); Hematocrit-VBG 39 % (42.0-52.0); Hemoglobin (Hb) 13.4 g/dL (12.6-17.4); Potassium (VBG) 4.24 mmol/L (3.70-5.30); Sodium 141 mmol/L (133-146)
[2025-05-26 21:33] LABS: #Basophils Less than 0.03 10x3/uL (0.0-0.2); #Eosinophils 0.06 10x3/uL (0.0-0.7); #Monocytes 0.10 10x3/uL (0.11-0.59); #Neutrophils 2.13 10x3/uL (1.40-6.50); %Basophils 0.3 % (0.0-1.0); %Eosinophils 1.8 % (0.0-10.0); %Lymphocytes 28.9 % (21.0-51.0); %Monocytes 3.1 % (0.0-10.0); %Neutrophils 65.6 % (42.0-75.0); Hematocrit 38.6 % (42.0-52.0); Hemoglobin 12.0 g/dL (14.0-18.0); Mean Corpuscular Hemoglobin 26.2 pg (27.0-31.0); Mean Corpuscular Volume 84.3 fL (78.0-98.0); Platelet Count 121 10x3/uL (130-400); Red Blood Cell (RBC) Count 4.58 mill/uL (4.70-6.10); White Blood Cell (WBC) Count 3.25 10x3/uL (4.8-10.8)
[2025-05-26 21:34] LABS: Plasma Cells 0 % (0-0)
[2025-05-26 21:35] LABS: ALT (SGPT) 7 U/L (Less than 45); AST (SGOT) 15 U/L (11-34); Albumin 3.7 g/dL (3.1-4.5); Alkaline Phosphatase 102 U/L (40-110); Anion Gap 16 mmol/L (10-20); BUN (Urea Nitrogen) 12 mg/dL (8.4-25.7); Bilirubin, Total 0.3 mg/dL (0.3-1.2); Calc. Creatinine Clearance 0 mL/min (70-130); Calcium 9.0 mg/dL (7.8-10.44); Carbon Dioxide 24 mmol/L (23-31); Chloride 106 mmol/L (98-107); Globulin 3.6 g/dL (2.4-3.5); Glucose 114 mg/dL (83-110); Lipase 110 U/L (8-78); Magnesium 1.8 mg/dL (1.6-2.6); Potassium 4.2 mmol/L (3.5-5.1); Sodium 142 mmol/L (136-145)
[2025-05-26 21:47] LABS: Acetaminophen Less than 10 mcg/mL (Less than 10); Salicylate Less than 8.0 mg/dL (Less than 8.0)
[2025-05-26] MEDS ORDERED: Magnesium 2 GM/50 ML BAG (IN WATER) ONE (22:15)
[2025-05-26] MEDS ORDERED: NIFEdipine 10 MG CAP PO SCH (23:00)
[2025-05-27 01:17] LABS: Cocaine Metabolite Screen Negative (Negative); THC/Cannabinoid Screen PRELIM POSITIVE (Negative); Tricyclic Screen Negative (Negative)
[2025-05-27 01:24] LABS: Bacteria/HPF None Seen HPF (None Seen); CAUTI Indications for Culture Dysuria,urgency,freq; Glucose, Urine (Dipstick) Normal (Negative); Leukocyte Negative Leu/uL (Negative); Protein, Urine (Dipstick) 50 mg/dL (Neg-Trace); RBC/HPF None Seen HPF (0-3); Specific Gravity, Urine Greater than 1.050 (1.002-1.036); WBC/HPF None Seen HPF (0-3)
[2025-05-27 01:25] LABS: Urine Culture Reflex No No
== END 2025-05-27 02:57 | disposition home or self-care (01) ==
LOC: ERS 20:23
DX: J44.1 Chronic obstructive pulmonary disease with (acute) exacerbation (principal); R10.84 Generalized abdominal pain; I25.2 Old myocardial infarction; I10 Essential (primary) hypertension; Z55.6 Problems related to health literacy
CPT/HCPCS: 71045; 71275; 74177; 80053; 80306; 80307; 81001; 82805; 83605; 83690; 83735; 83880; 84484; 85025; 87040; 87428; 93005; 96365; 96374; 99285; J2919; J3475; Q9967